=== PATIENT | female | born 1950 | race Caucasian/White ===

== ENCOUNTER 2023-04-06 12:47 | Outpatient (CLI) | payer MEDICARE, SELFPAY ==
--- NOTE | ~2023-04-06 | MR_ITS ---
EXAMINATION: MRA AIF DATE: 04/06/2023 14:06 INDICATION: Right leg paresthesias TECHNIQUE: Magnetic resonance angiography (MRA) of the abdomen, pelvis, and bilateral lower extremiti es was performed with 14 mL Multihance intravenous contrast. Sequences included coronal 3D CEMRA in t hree stations before and after contrast in a time course. Rotating maximum intensity projections were obtained. COMPARISON: None. FINDINGS: ABDOMINAL AORTA AND ITS BRANCHES: The celiac axis and superior mesenteric artery are normal at their origins. The inferior mesenteric a rtery origin is not well demonstrated. There are single renal arteries. 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 PELVIC VASCULATURE: The common iliac arteries, external iliac arteries, and proximal bilateral internal iliac arteries ar e unremarkable. RIGHT LOWER EXTREMITY VASCULATURE: The common femoral artery, superficial femoral artery, and profunda femoral artery appear normal. The popliteal artery is unremarkable. There is decreased opacification of the posterior tibial artery in its distal aspect. The peroneal and anterior tibial arteries are patent at the ankle. LEFT LOWER EXTREMITY VASCULATURE: The common femoral artery, superficial femoral artery, and profunda femoral artery appears normal. Th e popliteal artery is unremarkable. There is decreased opacification of the posterior tibial artery i n its distal aspect. The peroneal and anterior tibial arteries are patent at the ankle. OTHER FINDINGS: There are cysts of the kidneys. No definite additional findings are identified. IMPRESSION: 1. 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 2. Decreased opacification of the bilateral posterior tibial arteries. Reviewed, dictated and finalized at location F.
== END 2023-04-06 12:48 | disposition home or self-care (01) ==
LOC: ANHIMG 12:55
PROVIDERS: PCP Family Medicine; Visit Provider Family Medicine
DX: I71.40 Abdominal aortic aneurysm, without rupture, unspecified (principal); R20.2 Paresthesia of skin; I73.9 Peripheral vascular disease, unspecified; Z95.5 Presence of coronary angioplasty implant and graft; Z91.041 Radiographic dye allergy status
CPT/HCPCS: 73725; 74185; A9577; C8902; C8914

== ENCOUNTER 2025-05-23 11:54 | Emergency (ER) | payer MEDICARE, SELFPAY ==
[2025-05-23] VITALS (37 sets, daily range): BP systolic 102–139; BP diastolic 42–80; PULSE 54–84; RESP 14–29; TEMP 36.3; O2SAT 92–100
--- NOTE | ~2025-05-23 | XR_ITS ---
EXAM/PROCEDURE: XR chest 1V portable HISTORY: Dyspnea COMPARISON: None available. TECHNIQUE: AP view(s) of the chest. FINDINGS: LUNGS: Diffuse interstitial prominence, likely chronic. No consolidative process. PLEURAL SPACES: Clear. No evidence of fluid or pneumothorax. HEART/ MEDIASTINUM: Normal in appearance. SOFT TISSUES: No significant findings. BONES: No acute osseous abnormality. IMPRESSION: Probably chronic interstitial prominence. No airspace disease. Reviewed, dictated and finalized at location A. NT RELATION SPECIALIST
--- NOTE | 2025-05-23 12:00 | PC.NURSE ---
MD Dar made aware of pt's BP. No new orders at this time.
--- NOTE | 2025-05-23 12:03 | ED.GENADULT ---
HPI - General Adult General Chief complaint: Shortness of Breath/Dyspnea Stated complaint: shortness of breath History of Present Illness HPI narrative: Vianca is a 74F with a PMH of smoking, emphysema, and cardiac issues (she is unaware of her specific diagnosis, but did have a stent in 2011) that presented to the ED with lightheadedness, dyspnea and fatigue. She has been having it on an off for months but it has been severe for the last 2 hours[address] herself to the hospital but nearly passed out while walking in. She was a difficult historian and did not know much about her PMH. She denied fevers, chills, and falls. Related Data Home Medications ?Medication ?Instructions ?Recorded ?Confirmed ?Last Taken ?Type alendronate 70 mg tablet 70 mg PO WEEKLY 05/23/25 Unknown History clopidogrel 75 mg tablet 75 mg PO DAILY 05/23/25 Unknown History dorzolamide 2 % eye drops 1 drp EACH EYE TID 05/23/25 Unknown History esomeprazole magnesium 20 mg 20 mg PO Q24H 05/23/25 Unknown History capsule,delayed release fluorouracil 5 % topical cream 1 applic topical BID 05/23/25 Unknown History fluticasone fur. 100 mcg-umeclid 1 inh inhalation Q24H 05/23/25 Unknown History 62.5 mcg-vilant 25 mcg inhalat.powder (Trelegy Ellipta) fluticasone fur. 200 mcg-umeclid inhalation 05/23/25 Unknown History 62.5 mcg-vilant 25 mcg inhalat.powder (Trelegy Ellipta) glucosamine-chondroitin 250 mg-200 2 tablet PO ONCE 05/23/25 Unknown History mg tablet hydrochlorothiazide 12.5 mg capsule 12.5 mg PO Q12H 05/23/25 Unknown History hydrocodone 10 mg-acetaminophen 1 tablet PO Q8H 05/23/25 Unknown History 325 mg tablet ketorolac 0.4 % eye drops 1 drp EACH EYE Q6H 05/23/25 Unknown History metoprolol tartrate 50 mg tablet 50 mg PO Q12H 05/23/25 Unknown History oxybutynin chloride 10 mg 10 mg PO DAILY 05/23/25 Unknown History tablet,extended release 24 hr potassium chloride 10 mEq 10 meq PO DAILY 05/23/25 Unknown History tablet,extended release simvastatin 40 mg tablet 40 mg PO QPM 05/23/25 Unknown History Allergies Allergy/AdvReac Type Severity Reaction Status Date / Time aspirin Allergy Unknown Unknown Verified 05/23/25 12:03 Iodinated Contrast Media Allergy Unknown Unknown Verified 05/23/25 12:03 Penicillins Allergy Unknown Unknown Verified 05/23/25 12:03 Review of Systems Review of Systems: All systems reviewed & are unremarkable except as noted in HPI and below Exam Const: General: cooperative, well developed, alert, awake and Physically active Orientation/consciousness: oriented to person, oriented to place and oriented to time Other: pale appearing HENMT: Head: normal to inspection, normocephalic and atraumatic Ears: hearing grossly normal bilaterally and external ears normal Face/Nose/Sinus: Normal external nose present Eyes: General: appearance normal, both eyes and all related structures Periorbital: periorbital findings normal Sclera: sclerae normal Pupils: Equal, round and reactive pupils present Neck: Neck: normal visual inspection Chest: Chest palpation & inspection: normal inspection of the chest Resp: Effort & Inspection: normal respiratory effort, able to speak in complete sentences and no respiratory distress Other: tachypnea with increased work of breathing, LLL crackles Cardio: Jugular venous distension: no JVD Rate: bradycardic Rhythm: regular rhythm GI: Inspection: normal to inspection GI Palp: Yes Soft to palpation Auscultation: normal bowel sounds Skin: General skin exam: normal color and no rashes or lesions noted Neuro: General: oriented to person, oriented to place and oriented to time Cranial nerves: Yes Equal, round and reactive pupils present Extrem: General: normal to inspection Course Course Emergency Course: Ordered labs, CXR, EKG EKG showed sinus bradycardia with a rate of 56 with PVC but no ST elevation or depression EXAM/PROCEDURE: XR chest 1V portable HISTORY: Dyspnea COMPARISON: None available. TECHNIQUE: AP view(s) of the chest. FINDINGS: LUNGS: Diffuse interstitial prominence, likely chronic. No consolidative process. PLEURAL SPACES: Clear. No evidence of fluid or pneumothorax. HEART/ MEDIASTINUM: Normal in appearance. SOFT TISSUES: No significant findings. BONES: No acute osseous abnormality. IMPRESSION: Probably chronic interstitial prominence. No airspace disease. Labs show mild leukocytosis at 13.6, significant anemia at 7.3, mild hypokalemia, and elevated BNP at 433. Tachypnea is concerning for a PE but she is allergic to CT contrast. She gets a rash and itching but no anaphylaxis type reaction. I spoke with Amanda Begum at 1320 that recommended trying [facility] where she gets her primary care Next I spoke with Dr. Alarcon at [facility] that accepted provided the patient had a negative FOBT FOBT was negative. UA c/w UTI so ceftriaxone was given She was transferred to [facility] for imaging and a higher level of care Vital Signs Vital signs: Vital Signs Temperature 97.4 F L 05/23/25 11:54 Pulse Rate 54 L 05/23/25 11:54 Respiratory Rate 24 H 05/23/25 11:54 Blood Pressure 102/50 L 05/23/25 11:54 Pulse Oximetry 98 05/23/25 11:54 Oxygen Delivery Room Air 05/23/25 11:54 Temperature 97.4 F L 05/23/25 11:54 Pulse Rate 75 05/23/25 16:01 Respiratory Rate 27 H 05/23/25 16:01 Blood Pressure 139/70 05/23/25 16:01 Pulse Oximetry 97 05/23/25 16:01 Oxygen Delivery Room Air 05/23/25 12:00 Medical Decision Making Vital Signs Vital Signs: Vital Signs Temperature 97.4 F L 05/23/25 11:54 Pulse Rate 54 L 05/23/25 11:54 Respiratory Rate 24 H 05/23/25 11:54 Blood Pressure 102/50 L 05/23/25 11:54 Pulse Oximetry 98 05/23/25 11:54 Oxygen Delivery Room Air 05/23/25 11:54 Temperature 97.4 F L 05/23/25 11:54 Pulse Rate 75 05/23/25 16:01 Respiratory Rate 27 H 05/23/25 16:01 Blood Pressure 139/70 05/23/25 16:01 Pulse Oximetry 97 05/23/25 16:01 Oxygen Delivery Room Air 05/23/25 12:00 Lab Data 05/23/25 12:05 05/23/25 12:05 Labs: Lab Results 05/23/25 05/23/25 05/23/25 Range/Units 12:03 12:05 14:10 WBC 13.6 H (4.8-10.8) K/mm3 RBC 4.20 (4.20-5.40) M/mm3 Hgb 7.3 L (11.7-13.8) g/dL Hct 28.2 L (35.0-42.0) % MCV 67.1 L (78.0-102.0) fL MCH 17.4 L (27.0-31.0) pg MCHC 25.9 L (32-36) g/dL RDW 21.1 H (11.6-14.4) % Plt Count 558 H (150-420) K/mm3 MPV 9.2 (9.2-11.8) fl Immature Gran % (Auto) 0.7 H (0.0-0.0) % Neut % (Auto) 65.4 (50.0-70.0) % Lymph % (Auto) 23.3 (18.0-42.0) % [place] % (Auto) 8.2 (2.0-11.0) % Eos % (Auto) 1.5 (1.0-6.0) % Baso % (Auto) 0.9 (0.0-1.0) % Lymph # (Auto) 3.18 (1.10-4.50) K/mm3 [place] # (Auto) 1.12 H (0.10-0.90) K/mm3 Eos # (Auto) 0.20 (0.02-0.50) K/mm3 Baso # (Auto) 0.12 H (0.00-0.10) K/mm3 Abs Immat Gran (auto) 0.10 H (0.00-0.00) K/mm3 Absolute Neuts (auto) 8.92 H (1.70-7.20) K/mm3 Absolute Nucleated RBC 0.03 H (0.00-0.00) K/mm3 Nucleated RBC % 0.2 H (0-0.0) % % Immature Plt Fraction 1.6 (1.0-7.0) % D-Dimer 1.04 H (0.19-0.50) mg/L Sodium 143 (137-145) mmol/L Potassium 3.3 L (3.4-5.0) mmol/L Chloride 109 H (98-107) mmol/L Carbon Dioxide 19 L (22-30) mmol/L Anion Gap 15 H (4-12) mmol/L BUN 20 H (7-17) mg/dL Creatinine 0.92 (0.7-1.0) mg/dL Estim Creat Clear Calc 35 ml/min Estimated GFR 59 (59 - ) Glucose 134 H (65-110) mg/dL Calculated Osmolality 300 H (285-295) mOsm/kg Calcium 9.7 (8.4-10.2) mg/dL Magnesium 1.9 (1.6-2.3) mg/dL Total Bilirubin 1.0 (0.2-1.3) mg/dL AST 38 H (14-36) U/L ALT 20 (6-35) U/L Alkaline Phosphatase 63 (38-126) U/L Troponin I 0.013 (0.000-0.034) ng/mL NT-Pro-B Natriuret Pep 433 H (19.9-100) pg/mL Total Protein 8.3 H (6.3-8.2) g/dL Albumin 4.8 (3.5-5.1) g/dL Urine Color (Yellow) Urine Appearance (Clear) Urine pH (5.0-8.0) Ur Specific [place] (1.010-1.020) Urine Protein (Negative) Urine Glucose (UA) (Negative) Urine Ketones (Negative) Ur Blood (Man) (Negative) Urine Nitrate (Negative) Urine Bilirubin (Negative) Urine Urobilinogen (0.2-1.0) mg/dL Leukocyte Esterase Rfl (Negative) MORALES/UL Urine RBC (0-2) /hpf Urine WBC (0-3) /hpf Ur Squamous Epith Cells (Few) /hpf Ur Renal Epithelial Cell (None) /hpf Urine Bacteria (None) /hpf Stool Occult Blood Negative (Negative) Urine Opiates Screen (Negative) Urine Methadone Screen (Negative) Ur Barbiturates Screen (Negative) Ur Phencyclidine Scrn (Negative) Ur Amphetamine Screen (Negative) U Benzodiazepines Scrn (Negative) Urine Cocaine Screen (Negative) U Cannabinoids Screen (Negative) Ethyl Alcohol < 10 (<10) mg/dL Influenza A (RT-PCR) Negative (Negative) Influenza B (RT-PCR) Negative (Negative) RSV (RT-PCR) Negative (Negative) SARS-CoV-2 RNA (RT-PCR) Negative (Negative) 05/23/25 Range/Units 15:04 WBC (4.8-10.8) K/mm3 RBC (4.20-5.40) M/mm3 Hgb (11.7-13.8) g/dL Hct (35.0-42.0) % MCV (78.0-102.0) fL MCH (27.0-31.0) pg MCHC (32-36) g/dL RDW (11.6-14.4) % Plt Count (150-420) K/mm3 MPV (9.2-11.8) fl Immature Gran % (Auto) (0.0-0.0) % Neut % (Auto) (50.0-70.0) % Lymph % (Auto) (18.0-42.0) % [place] % (Auto) (2.0-11.0) % Eos % (Auto) (1.0-6.0) % Baso % (Auto) (0.0-1.0) % Lymph # (Auto) (1.10-4.50) K/mm3 [place] # (Auto) (0.10-0.90) K/mm3 Eos # (Auto) (0.02-0.50) K/mm3 Baso # (Auto) (0.00-0.10) K/mm3 Abs Immat Gran (auto) (0.00-0.00) K/mm3 Absolute Neuts (auto) (1.70-7.20) K/mm3 Absolute Nucleated RBC (0.00-0.00) K/mm3 Nucleated RBC % (0-0.0) % % Immature Plt Fraction (1.0-7.0) % D-Dimer (0.19-0.50) mg/L Sodium (137-145) mmol/L Potassium (3.4-5.0) mmol/L Chloride (98-107) mmol/L Carbon Dioxide (22-30) mmol/L Anion Gap (4-12) mmol/L BUN (7-17) mg/dL Creatinine (0.7-1.0) mg/dL Estim Creat Clear Calc ml/min Estimated GFR (59 - ) Glucose (65-110) mg/dL Calculated Osmolality (285-295) mOsm/kg Calcium (8.4-10.2) mg/dL Magnesium (1.6-2.3) mg/dL Total Bilirubin (0.2-1.3) mg/dL AST (14-36) U/L ALT (6-35) U/L Alkaline Phosphatase (38-126) U/L Troponin I (0.000-0.034) ng/mL NT-Pro-B Natriuret Pep (19.9-100) pg/mL Total Protein (6.3-8.2) g/dL Albumin (3.5-5.1) g/dL Urine Color Light yellow (Yellow) Urine Appearance Clear (Clear) Urine pH 5.0 (5.0-8.0) Ur Specific [place] 1.020 (1.010-1.020) Urine Protein Negative (Negative) Urine Glucose (UA) Negative (Negative) Urine Ketones Negative (Negative) Ur Blood (Man) Negative (Negative) Urine Nitrate Positive H (Negative) Urine Bilirubin Negative (Negative) Urine Urobilinogen 0.2 (0.2-1.0) mg/dL Leukocyte Esterase Rfl 1+ H (Negative) MORALES/UL Urine RBC None seen (0-2) /hpf Urine WBC 4-6 H (0-3) /hpf Ur Squamous Epith Cells Few (Few) /hpf Ur Renal Epithelial Cell Few H (None) /hpf Urine Bacteria 3+ H (None) /hpf Stool Occult Blood (Negative) Urine Opiates Screen Negative (Negative) Urine Methadone Screen Negative (Negative) Ur Barbiturates Screen Negative (Negative) Ur Phencyclidine Scrn Negative (Negative) Ur Amphetamine Screen Negative (Negative) U Benzodiazepines Scrn Negative (Negative) Urine Cocaine Screen Negative (Negative) U Cannabinoids Screen Negative (Negative) Ethyl Alcohol (<10) mg/dL Influenza A (RT-PCR) (Negative) Influenza B (RT-PCR) (Negative) RSV (RT-PCR) (Negative) SARS-CoV-2 RNA (RT-PCR) (Negative) Discharge Plan Discharge Clinical Impression: Anemia, Acute dyspnea, Allergic to IV contrast, Acute UTI Patient Disposition: Home Condition: Stable Instructions: Antibiotic Form Patient Language: Hungarian Prescriptions: No Action oxybutynin chloride 10 mg tablet extended release 24hr 10 mg PO DAILY alendronate 70 mg tablet 70 mg PO WEEKLY potassium chloride 10 mEq tablet extended release 10 meq PO DAILY clopidogrel 75 mg tablet 75 mg PO DAILY hydrocodone-acetaminophen 10-325 mg tablet 1 tablet PO Q8H simvastatin 40 mg tablet 40 mg PO QPM metoprolol tartrate 50 mg tablet 50 mg PO Q12H hydrochlorothiazide 12.5 mg capsule 12.5 mg PO Q12H esomeprazole magnesium 20 mg capsule,delayed release(DR/EC) 20 mg PO Q24H ketorolac 0.4 % drops 1 drp EACH EYE Q6H Trelegy Ellipta 100-62.5-25 mcg blister with device 1 inh INHALATION Q24H Trelegy Ellipta 200-62.5-25 mcg blister with device INHALATION dorzolamide 2 % drops 1 drp EACH EYE TID fluorouracil 5 % cream 1 applic topical BID glucosamine-chondroitin 250-200 mg tablet 2 tablet PO ONCE Rx Instructions: give after food/meal Follow-up/Referrals: UNKNOWN,DOCTOR [Non-Staff]
[2025-05-23 12:11] LABS: Hematocrit 28.2 % (35.0-42.0); Hemoglobin 7.3 g/dL (11.7-13.8); Immature Granulocyte Percent A 0.7 % (0.0-0.0); Immature Platelet Fraction Pct 1.6 % (1.0-7.0); Lymphocytes Absolute Auto 3.18 K/mm3 (1.10-4.50); Mean Corpuscular HGB Conc 25.9 g/dL (32-36); Mean Corpuscular Hemoglobin 17.4 pg (27.0-31.0); Mean Corpuscular Volume 67.1 fL (78.0-102.0); Nucleated Red Blood Cells Absolute Auto 0.03 K/mm3 (0.00-0.00); Nucleated Red Blood Cells Perc 0.2 % (0-0.0); Platelet Count Result 558 K/mm3 (150-420); Red Blood Count 4.20 M/mm3 (4.20-5.40); White Blood Count 13.6 K/mm3 (4.8-10.8)
--- NOTE | 2025-05-23 12:12 | ECG_ITS ---
Test Date: 2025-05-23 11:57:31 Measurements Intervals [place] Rate: 56 P: 23 [place]: 139 QRS: 56 QRSD: 89 T: 0 QT: 453 QTc: 439 Interpretive Statements SINUS BRADYCARDIA WITH OCCASIONAL VENTRICULAR PREMATURE COMPLEXES NONSPECIFIC ST & T-WAVE ABNORMALITY ABNORMAL ECG No previous ECG available for comparison Electronically Signed On 05-23-2025 12:30:42 LABORATORY COORDINATOR by Manpreet Dangelo M.D.
[2025-05-23 12:21] LABS: Alanine Aminotransferase 20 U/L (6-35); Albumin Level 4.8 g/dL (3.5-5.1); Alkaline Phosphatase 63 U/L (38-126); Anion Gap 15 mmol/L (4-12); Aspartate Amino Transferase 38 U/L (14-36); Bilirubin,Total 1.0 mg/dL (0.2-1.3); Blood Urea Nitrogen 20 mg/dL (7-17); Calcium 9.7 mg/dL (8.4-10.2); Carbon Dioxide 19 mmol/L (22-30); Chloride 109 mmol/L (98-107); Estimated CRCL calculation 35 ml/min; Estimated Glomerular Filt Rate 59; Glucose 134 mg/dL (65-110); Magnesium 1.9 mg/dL (1.6-2.3); Osmolality Calculated 300 mOsm/kg (285-295); Potassium 3.3 mmol/L (3.4-5.0); Sodium 143 mmol/L (137-145); Total Protein 8.3 g/dL (6.3-8.2)
[2025-05-23 12:30] LABS: NT Pro B Type Natriuretic Pept 433 pg/mL (19.9-100)
[2025-05-23 12:32] LABS: Troponin I 0.013 ng/mL (0.000-0.034)
--- OUTSIDE RECORDS SUMMARY | 2025-05-23 12:35 | XMS_ITS | Clinical Summary ---
Author Organization [facility] Address [address] [address] Phone Care Team Providers Care Chair Pad Maker Name Role Phone Case Combs MD Primary Care Provider [phone] Matt Maradiaga MD Unavailable Gen Figueroa MD Unavailable Allergies Active Allergy Reactions Criticality Noted Date Comments Aspirin Hives High Iodinated Contrast Media Swelling Medium Penicillins Hives,Swelling High Medications Blood Pressure Monitoring (BLOOD PRESSURE CUFF) MiscIndications: Essential hypertension Dispense arm cuff, battery operated. Check blood pressure & pulse twice a day at random times. 1 Each 03/28/20 18 Active Sidney-3 Fatty Acids (FISH OIL PO) Take by mouth. Activ e VITAMIN D PO Take by mouth. Ac tive Boswellia-Glucos amine-Vit D (OSTEO BI-FLEX ONE PER DAY PO) Take by mouth 2 times daily as needed. Active triamcinolone (KENALOG) 0.1 % Cream Application Site: apply to affected areas twice a day for 10 days. (Description and Location) 15 g 1 02/10/20 21 Active Additional Information Patient not taking.Reported on 02/05/2025 albuterol 108 (90 Base) MCG/ACT Aerosol Solution INHALE 1 PUFF BY MOUTH EVERY 6 HOURS NEEDED FOR WHEEZING 8.5 g 06/23/20 22 Active Additional Information Patient not taking.Reported on 02/05/2025 Banophen 50 MG Capsule 04/22/20 22 Active Fluticasone-Umec lidin-Vilant (Trelegy Ellipta) 100-62.5-25 MCG/ACT AEROSOL POWDER, BREATH ACTIVATED take 1 Puff by inhalation daily. 2 Each 11/16/19 23 Active Additional Information Patient not taking.Reported on 02/05/2025 ketorolac, ophth, (ACULAR) 0.5 % Solution INSTILL 1 DROP IN BOTH EYES THREE TIMES DAILY 10/04/19 24 Active dorzolamide (TRUSOPT) 2 % Solution INSTILL 1 DROP IN BOTH EYES THREE TIMES DAILY 10/04/19 24 Active betamethasone dipropionate 0.05 % Cream APPLY TWICE DAILY TO SCALING INFLAMED RED SKIN ON LEFT ELBOW 10/26/19 24 Active mupirocin (BACTROBAN) 2 % Ointment APPLY TOPICALLY TO LEFT ELBOW THREE TIMES DAILY FOR 10 DAYS 09/22/19 24 Active prednisoLONE acetate (PRED FORTE) 1 % Suspension SHAKE LIQUID AND INSTILL 1 DROP IN LEFT EYE THREE TIMES DAILY 04/24/20 24 Active metoprolol tartrate (LOPRESSOR) 50 MG TabletIndication s:Primary hypertension Take 1 Tablet by mouth 2 times daily. 180 Tablet 3 05/29/20 24 Active alendronate (FOSAMAX) 70 MG TabletIndication s:Osteopenia, unspecified location TAKE 1 TABLET BY MOUTH EVERY 7 DAYS 12 Tablet 1 07/29/19 25 Active hydroCHLOROthiaz erika (MICROZIDE) 12.5 MG Capsule TAKE 1 CAPSULE BY MOUTH DAILY 90 Capsule 2 09/10/19 25 Active simvastatin (ZOCOR) 40 MG Tablet Take 1 Tablet by mouth every evening. 90 Tablet 2 10/30/19 25 Active oxybutynin (DITROPAN-XL) 10 MG TABLET SR 24 HR TAKE 1 TABLET BY MOUTH DAILY 90 Tablet 2 11/25/19 25 Active Fluticasone-Umec lidin-Vilant (Trelegy Ellipta) 100-62.5-25 MCG/ACT AEROSOL POWDER, BREATH ACTIVATEDIndicat ions:Panlobular emphysema take 1 Puff by inhalation daily. 60 Each 12/25/19 Active clopidogrel (PLAVIX) 75 MG Tablet TAKE 1 TABLET BY MOUTH DAILY 90 Tablet 2 01/01/20 Active Fluticasone-Umec lidin-Vilant (Trelegy Ellipta) 200-62.5-25 MCG/ACT AEROSOL POWDER, BREATH ACTIVATEDIndicat ions:Panlobular emphysema take 1 Puff by inhalation daily. 1 Each 1 01/10/20 Active Additional Information Patient not taking.Reported on 02/05/2025 potassium chloride CR (KLORCON) 10 MEQ Tablet Controlled ReleaseIndicatio ns:Hypokalemia Take 1 Tablet by mouth daily. 90 Tablet 1 01/17/20 Active esomeprazole (NexIUM) 20 MG CAPSULE DELAYED RELEASE TAKE 1 CAPSULE BY MOUTH DAILY 90 Capsule 1 04/22/20 Active HYDROcodone-acet aminophen (NORCO) 10-325 MG TabletIndication s:Chronic pain syndrome Take 1 Tablet by mouth every 8 hours as needed for Moderate or more severe pain. DX G89.4 90 Tablet 05/23/20 25 Active HYDROcodone-acet aminophen (NORCO) 10-325 MG TabletIndication s:Chronic pain syndrome Take 1 Tablet by mouth every 8 hours as needed for Moderate or more severe pain. DX G89.4 90 Tablet 04/22/20 25 025 Discontin ued(Reord er) Active Problems Problem Noted Date Diagnosed Date Paresthesias 02/05/2025 Therapeutic drug monitoring 10/04/2024 Skin lesion of left arm 02/21/2024 Skin lesions 11/01/2023 Urinary incontinence 11/01/2023 Leukocytosis 09/18/2023 Acute pain of right knee 07/26/2023 Right hip pain 07/26/2023 Fall 07/26/2023 Abdominal aortic aneurysm (AAA) without rupture 04/21/2023 Chest pain 02/10/2023 Gastroesophageal reflux disease 02/10/2023 Elbow swelling, left 01/13/2023 Left elbow pain 01/13/2023 PVD (peripheral vascular disease) 12/12/2022 Osteopenia 10/05/2022 Chronic pain of right ankle 10/05/2022 Postmenopausal 07/02/2022 Ruptured Bakers cyst 05/16/2022 Hypokalemia 05/09/2022 Elevated serum creatinine 04/01/2022 Right leg paresthesias 04/01/2022 Left leg paresthesias 04/01/2022 Leg swelling 04/01/2022 Prediabetes 01/04/2022 Lung nodule 12/29/2021 Noncompliance 12/29/2021 Hyperglycemia 10/02/2021 History of heart attack 06/28/2018 Skin lesion 06/28/2018 Elevated vitamin B12 level 12/28/2017 Chronic narcotic use 12/26/2017 Chronic pain syndrome 10/17/[address] 09/11/2017 Vitamin D deficiency 09/10/2017 B12 deficiency 09/10/2017 Dermatophytosis of nail 08/11/2017 High blood pressure 07/26/2017 Tobacco use disorder 07/26/2017 Overweight (BMI 25.0-29.9) 07/26/2017 H/O heart artery stent 07/26/2017 Toenail deformity 07/26/2017 Panlobular emphysema 03/15/2017 Screening for malignant neoplasm of colon 2016 Dermatitis 11/24/2016 Depression Irritable bladder Hyperlipidemia Anxiety Hot flashes Coronary artery disease with angina pectoris Resolved Problems Problem Noted Date Diagnosed Date Resolved Date Tobacco abuse 05/29/2024 03/04/2025 Wheezing 07/26/2017 09/01/2023 Encounter for immunization 03/15/2017 0 07/26/2017 Encounters Date Type Department Care Team Description 05/21/2025 [facility] [place] [phone] Case Combs MD Medication Renewal Reviewed 04/23/2025 MyChart RX Renewal [facility] [address] [place] [phone] Case Combs MD Medication Renewal Declined 04/22/2025 [facility] [place] [address] Case Combs MD Medication Refill 04/21/2025 MyChart RX Renewal [facility] [address] [place] [address] Case Combs MD Medication Renewal Reviewed 04/21/2025 Refill [facility] [address] [place] [address] Case Combs MD Medication Refill 03/21/2025 MyChart RX Renewal [facility] [address] [place] [address] Case Combs MD Medication Renewal Reviewed 03/19/2025 Results Follow-Up [facility] [address] [place] [address] Margy Shepherd, RN 6 Min Walk 03/11/2025 2:57 PM CDT - 03/11/2025 11:59 PM CDT Hospital Encounter [facility] Res[facility] Therapy [address] [place] [phone] Gen Figueroa MD Discharge Disposition: Discharged to home or Selfcare 03/11/2025 Travel 03/04/2025 1:45 PM CDT Office Visit [facility] [address] [place] [address] Gen Figueroa MD Panlobular emphysema (HCC) (Primary Dx); Lung nodule; Primary hypertension; Tobacco use disorder Discharge Disposition: Discharged to home or Selfcare 03/04/2025 Travel from Last 3 Months Immunizations Immunization Administration Dates Next Due Covid-19, Mrna, Lnp-s, PF, 1 00 mcg/0.5 mL Dose (Moderna) 09/18/2020,08/21/2020 Influenza Vaccine greater than 3 yrs 03/27/2014 Influenza Vaccine, Quadrivalent, PF 04/06/2019,1 ,03/04/2017 Influenza, High-dose, Quadrivalent 03/31/2021 Influenza, Quadrivalent, Adjuvanted 03/11/2020 Influenza, Seasonal, Injecta ble, Undefined 03/27/2014 Influenza, Trivalent, Adjuvanted, PF 03/11/2020 Influenza, high-dose, trivalent, PF 03/29,04/14/2016,04/25/2015,2014 PNEUMONIA ADULT IM [id number] 05/26/2016 Pneumococcal Vaccine - 13 Valent 04/25/2015,03/29 Pneumococcal Vaccine Adult - 23 Valent 05/26/2016,06/27/2001 Tetanus Toxoid, Unspecified Formulation 09/26/2007 Family History Medical History Relation Name Comments Cancer Brother 1 Jose M Lung Cancer Brother 1 Jose M Cancer Brother 2 Jose M Romero Hypertension Father Celio Romero No Known Problems Maternal Grandfather Cancer Maternal Grandmother Emelyn Erlin Alzheimer's Disease Mother Mechelle Romero Heart Attack Mother Mechelle Romero No Known Problems Paternal Grandfather No Known Problems Paternal Grandmother Heart Attack Son Relation Name Status Comments Brother 1 Jose M Brother 2 Jose M Romero Father Celio Romero Maternal Grandfather Maternal Grandmother Emelyn Erlin Mother Mechelle Romero Paternal Grandfather Paternal Grandmother Son Alive Social History Tobacco Use Types Packs/Day Years Used Date Smoking Tobacco: Every Day Cigarettes 0.5 53.4 Started: [birth year]/20/1971 Smokeless Tobacco: Never Tobacco Cessation:Ready to Q uit: No; Counseling Given: Yes Comments:Less than half a pack Alcohol Use Standard Drinks/Week Comments No 0 (1 standard drink = 0.6 oz pur e alcohol) [facility] Utilities Answer Date Recorded In the past 12 months has [employer], gas, oil, or water [employer] threatened to shut off services in your home? No 10/01/2024 Social Connection and Isolation Panel Answer Date Recorded In a typical week, how many times do you talk on the phone with family, friends, or neighbors? More than three times a week 10/01/2024 How often do you get togethe r with friends or relatives? Once a week 10/01/2024 How often do you attend [facility] or religion services? Never 10/01/2024 Do you belong to any clubs o r organizations such as christian groups, unions, fraternal or athletic groups, or school groups? No 10/01/2024 How often do you attend meet ings of the clubs or organizations you belong to? Never 10/01/2024 Are you , , di vorced, , never , or living with a partner? 10/01/2024 AUDIT-C Answer Date Recorded Q1: How often do you have a drink containing alcohol? Never 10/01/2024 Q2: How many drinks containi ng alcohol do you have on a typical day when you are drinking? Patient does not drink Q3: How often do you have si x or more drinks on one occasion? Never 10/01/2024 Overall Financial Resource Strain (CARDIA) Answe r Date Recorded How hard is it for you to pa y for the very basics like food, housing, medical care, and heating? Not very hard 10/01/2024 PHQ-2 Answer Date Recorded Total Score - Questions 1-9 0 01/25 [facility] - Occupational Stress Questionnaire Answer Date Recorded Do you feel stress - tense, restless, nervous, or anxious, or unable to sleep at night because your mind is troubled all the time - these days? Only a little 10/01/2024 Exercise Vital Sign Answer Date Recorde d On average, how many days pe r week do you engage in moderate to strenuous exercise (like a brisk walk)? 3 days 10/01/2024 On average, how many minutes do you engage in exercise at this level? 30 min 10/01/2024 Hunger Vital Sign Answer Date Recorded Within the past 12 months, y ou worried that your food would run out before you got the money to buy more. Never true 10/02/19 25 Within the past 12 months, t he food you bought just didn't last and you didn't have money to get more. Never true 10/01/2024 PRAPARE - Transportation Answer Date Re corded In the past 12 months, has l ack of transportation kept you from medical appointments or from getting medications? No 12/2024 In the past 12 months, has l ack of transportation kept you from meetings, work, or from getting things needed for daily living? No 10/01/2024 Housing Stability Vital Sign Answer Davis e Recorded In the last 12 months, was t here a time when you were not able to pay the mortgage or rent on time? No 10/31/2023 In the last 12 months, how many places have you lived? 1 10/31/2023 In the last 12 months, was t here a time when you did not have a steady place to sleep or slept in a long-term (including now)? No 10/31/2023 Housing Stability Vital Sign Answer Davis e Recorded In the last 12 months, was t here a time when you were not able to pay the mortgage or rent on time? No 10/01/2024 In the past 12 months, how m any times have you moved where you were living? 0 10/01/2024 At any time in the past 12 m [facility], were you homeless or living in a long-term (including now)? No 10/01/2024 Education Answer Date Recorded What is the highest level of school you have completed or the highest degree you have received? GED or equivalent 07/2022 Sexually Active Control Partners Comments Not Currently None Male Comments No Sex and Gender Information Value Date Recorded Sex Assigned at Not on file Legal Sex Female 8:55 PM CDT Gender Identity Not on file Sexual Orientation Not on file Last Filed Vital Signs Vital Sign Reading Time Taken Comments Blood Pressure 130/64 03/04/2025 1:41 PM CDT Pulse 51 03/04/2025 1:41 PM CDT Temperature 36.5 C (97.7 F) 03/04/2025 1:41 PM CDT Respiratory Rate 16 03/04/2025 1:41 PM CDT Oxygen Saturation 98% 03/04/2025 1:41 PM CDT Inhaled Oxygen Concentration - - Weight 64.1 kg (141 lb 4.8 oz) 03/04/2025 1:41 P M CDT Height 157.5 cm (5' 2) 03/04/2025 1:41 PM CDT Body Mass Index 25.84 03/04/2025 1:41 PM CDT Plan of Treatment Upcoming Encounters Date Type Department Care Team (Late st Contact Info) Description 05/24/2025 3:00 PM MEDICATION RECONCILIATION TECHNICIAN [facility]ointment [facility] [address] [place] [address] Gen Figueroa MD [address] [place] [address] Discharge Disposition: Discharged to home or Selfcare 05/29/2025 1:00 PM MEDICATION RECONCILIATION TECHNICIAN Office Visit [facility] [address] [place] [address] Case Combs MD [address] [address] 06/03/2025 10:15 AM MEDICATION RECONCILIATION TECHNICIAN Office Visit [facility] - Pulmonology & Sleep Medicine [facility] [address] [place] [address] Gen Figueroa MD [address] [place] [address] Health Maintenance Due Date Last Done Comments TdaP Immunization 1950 Zoster Immunization (1 of 2) 1998 Medicare Initial AWV G0438 09/25/2014 Respiratory Syncytial Virus (RSV) Immunization (Adult) (1 - 1-dose 75+ series) 10/01/2023 Influenza Immunization (#1) 2025 10/0 10/2020, 03/11/2020, 03/11/2020, Additional history exists SARS-COV-2 Immunization ( season) 2025 05/31/2021, 09/18/2020, 08/21/2020 Lung Cancer Screening 08/31/2025 08/31/2024 , 08/01/2023, 07/16/2022, Additional history exists DEXA Bone Density 10/08/2026 10/08/2024, 07/07/2022 Pneumococcal Immunization (50+ years) Completed 05/26/2016, 05/26/2016, 04/25/2015, Additional history exists Pneumococcal Immunization Combined Discontinued 05/26/2016, 05/26/2016, 04/25/2015, Additional history exists Immunochemical Fecal Occult Blood Discontinued 07/26/2017 Hepatitis C Virus (HCV) Screening Completed 08/04/2017 Cologuard Discontinued 02/03/2022, 01/15/2019 Colorectal Cancer Screening Discontinued Mammogram Discontinued 08/31/2024, 07/2022, 10/10/2021, Additional history exists Colonoscopy Discontinued Hepatitis B Immunization Aged Out No longer eligible based on patient's age to complete this topic Human Papillomavirus (HPV) Immunization Aged Out No longer eligible based on patient's age to complete this topic Meningococcal Immunization (ACWY) Aged Out No longer eligible based on patient's age to complete this topic Rotavirus Immunization Aged Out No lo nger eligible based on patient's age to complete this topic Medical Devices Implanted Type Area Lock Maintenance Supervisor Device Identifier Shelf Expiration Date Model / Serial / Lot Device Clsr 70cm 6fr Angio-Seal Vip .035in Vasc Collagen Valuelink Gw Insertion [facility] - [id number] Implanted:Qty: 1 on 03/14/2018 by Fabi Little MD at [facility] IMPLANT Right: Groin Playto 11/24/2018 [id number] / / [id number] Technis 1-Piece Iol With Simplicity Delivery System Implanted:Qty: 1 on 12/12/2023 by Natacha Horne MD PhD at [facility] Left: Eye 05/25/2025 [id number] / [id number] / [id number] Procedures Procedure Name Priority Date/Time Associated Diagnosis Comments 6 MIN WALK Routine 03/11/2025 Panlobular emphysema (HCC) [facility] BONE DENSITOMETRY AXIAL SKELETON Routine 10/08/2024 9:35 AM CDT Postmenopausal NURIA SCREENING BILATERAL DIGITAL W CAD W DEEJAY Routine 08/31/2024 11:12 AM MEDICATION RECONCILIATION TECHNICIAN Encounter for screening mammogram for breast cancer CT CHEST W/O CONTRAST Routine 08/31/2024 10:45 AM MEDICATION RECONCILIATION TECHNICIAN Lung nodule COLOGUARD Routine 02/03/2022 7:44 PM CDT Screening for malignant neoplasm of colon HEPATITIS C ANTIBODY Routine 08/04/2017 7:39 AM MEDICATION RECONCILIATION TECHNICIAN Encounter for hepatitis C screening test for low risk patient STOOL, OCCULT BLOOD IMMUNOASSAY (IFOB) Routine 07/26/2017 10:33 AM MEDICATION RECONCILIATION TECHNICIAN Screening for malignant neoplasm of colon from Last 3 Months or Most Recently Relevant to Health Maintenance Results * 6 Min Walk (03/11/2025) RESTING PULSE 80 RESTING SPO2 97 % Resting Dyspnea Scale 1 OXYGEN FLOW RATE AT REST 0.00 L/min SPO2 DURING AMBULATION WITH O2 na SPO2 DURING AMBULATION WITHOUT O2 90 OXYGEN FLOW RATE DURING ACTIVITY 0.00 L/min TOTAL DISTANCE (METERS) 182.00 m POST AMBULATION PULSE 86 POST AMBULATION BLOOD PRESSURE 125/58 POST-WALK DYSPNEA 3 NYHA Class Gen Figueroa MD PFT ORDERABLES Final Result * NURIA BONE DENSITOMETRY AXIAL SKELETON (10/08/2024 9:35 AM CDT) Anatomical Region Laterality Modality BODY N/A Computed Radiogr aphy 10/10/2024 5:42 AM CDT Impressions 10/10/2024 5:45 AM CDT IMPRESSION: Low bone mass REFERENCE: Bone mineral density: T-Score: Normal (T-score above or = -1.0) Low bone mass (T-score between -1.0 and -2.5) replaces the previously used term osteopenia Osteoporosis (T-score = or below -2.5) Z-Score: Within the expected range for age (Z-score above -2.0) Below the expected range for age (Z-score is -2.0 or below) Please see below follow up recommendations. Medical evaluation for secondary causes of low bone mineral density may be appropriate. FRAX is a World Health Organization validated fracture risk assessment tool that calculates a person's 10 year probability of a major osteoporosis related fracture and hip fracture. According to the National Osteoporosis Foundation guidelines, postmenopausal women and men age 50 or older with low bone mass and a 10 year probability of a major osteoporosis related fracture = or greater than 20% or a 10 year probability of a hip fracture = or greater than 3% should be considered for pharmacological treatment for the prevention of osteoporosis. For further information, including treatment recommendations, please refer to the 2019 ISCD Official Positions (http://www.iscd.org) and the NOF's Clinician's Guide to Prevention and Treatment of Osteoporosis (http://www.nof.org/professionals/clinical-guidelines) Narrative 10/10/2024 5:45 AM CDT EXAM DESCRIPTION: NURIA BONE DENSITOMETRY AXIAL SKELETON REASON FOR STUDY: 74 y/o year old F with given history of: Post menopausal status. History of smoking. Patient has taken/is taking Fosamax, and vitamin-D. 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 CLINICAL INFORMATION: Current height: 62 inches Maximum height: 62 inches Weight: 151 pounds Risk factors: Smoking COMPARISON: 07/07/2022 FINDINGS: AP LUMBAR SPINE L1-L4: Total BMD is 1.336 g/cm2 T-score is 1.1 This is a 4.8% increase in comparison to prior exam which is statistically significant. LEFT HIP: Total BMD is 0.906 g/cm2 T-score is -0.8 This is a 0.2% increase in comparison to prior exam which is not statistically significant. Femoral neck BMD is 0.831 g/cm2 T-score is -1.5 FRAX: 10 year risk for a major osteoporotic fracture is 12.2 %, 10 year risk for a hip fracture is 3.9 % Per National Osteoporosis Foundation guidelines, this patient does meet the criteria for pharmacological treatment of patients with FRAX 10 year major osteoporotic fracture risk scores of = or greater than 20% or a 10 year probability of a hip fracture = or greater than 3%, to reduce fracture risk. Additional factors such as frequent falls are not represented in FRAX and warrant individual clinical judgment. THIS IS AN ELECTRONICALLY VERIFIED FINAL REPORT 10/10/2024 5:42 AM - Electronically signed by Yeimi Ventura M.D. TW: DAMON Report ID: [id number] Reading Location: [place] [address] Procedure Note Yeimi Ventura MD - 10/10/2024 EXAM DESCRIPTION: NURIA BONE DENSITOMETRY AXIAL SKELETON REASON FOR STUDY: 74 y/o year old F with given history of: Post menopausal status. History of smoking. Patient has taken/is taking Fosamax, and vitamin-D. 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 CLINICAL INFORMATION: Current height: 62 inches Maximum height: 62 inches Weight: 151 pounds Risk factors: Smoking COMPARISON: 07/07/2022 FINDINGS: AP LUMBAR SPINE L1-L4: Total BMD is 1.336 g/cm2 T-score is 1.1 This is a 4.8% increase in comparison to prior exam which is statistically significant. LEFT HIP: Total BMD is 0.906 g/cm2 T-score is -0.8 This is a 0.2% increase in comparison to prior exam which is not statistically significant. Femoral neck BMD is 0.831 g/cm2 T-score is -1.5 FRAX: 10 year risk for a major osteoporotic fracture is 12.2 %, 10 year risk for a hip fracture is 3.9 % Per National Osteoporosis Foundation guidelines, this patient does meet the criteria for pharmacological treatment of patients with FRAX 10 year major osteoporotic fracture risk scores of = or greater than 20% or a 10 year probability of a hip fracture = or greater than 3%, to reduce fracture risk. Additional factors such as frequent falls are not represented in FRAX and warrant individual clinical judgment. THIS IS AN ELECTRONICALLY VERIFIED FINAL REPORT 10/10/2024 5:42 AM - Electronically signed by Yeimi Ventura M.D. TW: Report ID: [id number] Reading Location: [place] [address] IMPRESSION: Low bone mass REFERENCE: Bone mineral density: T-Score: Normal (T-score above or = -1.0) Low bone mass (T-score between -1.0 and -2.5) replaces the previously used term osteopenia Osteoporosis (T-score = or below -2.5) Z-Score: Within the expected range for age (Z-score above -2.0) Below the expected range for age (Z-score is -2.0 or below) Please see below follow up recommendations. Medical evaluation for secondary causes of low bone mineral density may be appropriate. FRAX is a World Health Organization validated fracture risk assessment tool that calculates a person's 10 year probability of a major osteoporosis related fracture and hip fracture. According to the National Osteoporosis Foundation guidelines, postmenopausal women and men age 50 or older with low bone mass and a 10 year probability of a major osteoporosis related fracture = or greater than 20% or a 10 year probability of a hip fracture = or greater than 3% should be considered for pharmacological treatment for the prevention of osteoporosis. For further information, including treatment recommendations, please refer to the 2019 ISCD Official Positions (http://www.iscd.org) and the NOF's Clinician's Guide to Prevention and Treatment of Osteoporosis (http://www.nof.org/professionals/clinical-guidelines) Case Combs MD IMG DEXA ORDERABLES Final Result * NURIA SCREENING BILATERAL DIGITAL W CAD W DEEJAY (08/31/2024 11:12 AM MEDICATION RECONCILIATION TECHNICIAN) Anatomical Region Laterality Modality breast Bilateral Mammography 08/31/2024 10:5 3 AM MEDICATION RECONCILIATION TECHNICIAN Narrative 09/03/2024 8:00 AM CDT - NURIA SCREENING BILATERAL DIGITAL W CAD W DEEJAY BILATERAL DIGITAL SCREENING MAMMOGRAM 3D/2D WITH CAD WITH MEDIOLATERAL OBLIQUE CRANIOCAUDAL: 08/31/2024 The study was acquired using digital technology and interpreted from soft copy. Current study was also evaluated with ICAD version 7.2. 2D digital mammographic views, as well as 3D digital tomosynthesis were performed in the CC and MLO projections. CLINICAL: Routine screening. Patient has no complaints. No personal history of cancer. No family history of breast cancer. COMPARISONS: Comparison is made to exams dated: 10/10/2021, 01/13/2019, and 11/26/2022 [facility]. BREAST TISSUE:There are scattered areas of fibroglandular density. FINDINGS: No significant masses, calcifications, or other findings are seen in either breast. There has been no significant interval change. IMPRESSION: NEGATIVE There is no mammographic evidence of malignancy. A 1 year screening mammogram is recommended. A letter will be sent to the patient with these results. The patient will be entered into a reminder system with a target due date of 1 year for her next screening exam. Electronically signed by: Nanci strange/penrad:08/31/2024 16:56:25 Paediatrician(s): NAHID MarieR)(M), [facility] letter sent: Normal Exam Reading location: [place] Mammogram BI-RADS: Category 1: Negative Procedure Note Nanci Mcnally MD - 09/03/2024 - NURIA SCREENING BILATERAL DIGITAL W CAD W DEEJAY BILATERAL DIGITAL SCREENING MAMMOGRAM 3D/2D WITH CAD WITH MEDIOLATERAL OBLIQUE CRANIOCAUDAL: 08/31/2024 The study was acquired using digital technology and interpreted from soft copy. Current study was also evaluated with ICAD version 7.2. 2D digital mammographic views, as well as 3D digital tomosynthesis were performed in the CC and MLO projections. CLINICAL: Routine screening. Patient has no complaints. No personal history of cancer. No family history of breast cancer. COMPARISONS: Comparison is made to exams dated: 10/10/2021, 01/13/2019, and 11/26/2022 [facility]. BREAST TISSUE:There are scattered areas of fibroglandular density. FINDINGS: No significant masses, calcifications, or other findings are seen in either breast. There has been no significant interval change. IMPRESSION: NEGATIVE There is no mammographic evidence of malignancy. A 1 year screening mammogram is recommended. A letter will be sent to the patient with these results. The patient will be entered into a reminder system with a target due date of 1 year for her next screening exam. Electronically signed by: Nanci strange/penrad:08/31/2024 16:56:25 Paediatrician(s): RT Cynthia(R)(M), [facility] letter sent: Normal Exam Reading location: [place] Mammogram BI-RADS: Category 1: Negative Case Rik Combs MD IMG MAMMO ORDERABLES Rufina l Result * CT CHEST W/O CONTRAST (08/31/2024 10:45 AM MEDICATION RECONCILIATION TECHNICIAN) Anatomical Region Laterality Modality Chest N/A Computed Tomogra phy 09/05/2024 11:3 4 AM CDT Impressions 09/05/2024 11:37 AM CDT IMPRESSION: 1. No acute cardiopulmonary abnormality. 2. Grossly stable pulmonary nodules compared to 08/01/2023. 3. Grossly stable indeterminate mediastinal and hilar lymphadenopathy. Recommend continued 6-12 month follow-up. Narrative 09/05/2024 11:37 AM CDT EXAM DESCRIPTION: CT CHEST W/O CONTRAST REASON FOR STUDY: F/u lung nodules since 2018. Hx of COPD, HTN and smoker TECHNIQUE: CT scan of the chest performed without intravenous contrast using helical scanning technique. Reconstructed coronal and sagittal MPR images reviewed. All images stored on PACS. Automated exposure control was used as a dose optimization technique for this examination. COMPARISON: 08/01/2023 FINDINGS: The sensitivity for detection of solid visceral lesions is diminished without the use of intravenous contrast. LUNGS: Moderate to severe emphysema is present. Mild bibasilar dependent ground-glass and reticulation likely represents mild fibrosis. No consolidation. No gross evidence of pulmonary edema. Mild biapical pleuroparenchymal scarring is redemonstrated. Subpleural nodularity within the posterior right upper lobe is stable and likely represents scarring as well (for reference 47). Stable 4 mm lateral right upper lobe nodule (99). Grossly stable linear scarring along the minor fissure. Stable 6 mm left upper lobe nodule (107). Stable 5 mm left upper lobe nodule (74). Stable 3 mm lateral left lower lobe nodule (111). Stable nodules along the left major fissure (71). There are other stable sub 6 mm pulmonary nodules. PLEURA: No effusion. No pneumothorax. MEDIASTINUM/FRANCISCO J: Grossly stable prominent mediastinal lymph nodes. For reference is a 13 x 9 mm right paratracheal lymph node (58). 13 mm right paratracheal lymph node in short axis, previously measuring 12 mm (76). Grossly stable 14 mm right hilar lymph node (99). Grossly stable 10 mm left perihilar lymph node as well in short axis (105). HEART: The heart is normal in size. Trace effusion CORONARY ARTERY CALCIFICATION: Significant coronary calcification VASCULATURE: Aorta is normal in caliber. AXILLA: No adenopathy. CHEST WALL: No masses. No subcutaneous air. HARDWARE/LINES/TUBES: None. UPPER ABDOMEN: Hypoattenuating lesion within segment 5 of the liver is stable and likely represents a cyst. MUSCULOSKELETAL: No significant abnormality. OTHER: No other significant abnormality. THIS IS AN ELECTRONICALLY VERIFIED FINAL REPORT 09/05/2024 11:34 AM - Electronically signed by Tyson Alvarado M.D. AG: URI Report ID: [id number] Reading Location: [id number] Procedure Note Tyson Alvarado MD - 09/05/2024 EXAM DESCRIPTION: CT CHEST W/O CONTRAST REASON FOR STUDY: F/u lung nodules since 2018. Hx of COPD, HTN and smoker TECHNIQUE: CT scan of the chest performed without intravenous contrast using helical scanning technique. Reconstructed coronal and sagittal MPR images reviewed. All images stored on PACS. Automated exposure control was used as a dose optimization technique for this examination. COMPARISON: 08/01/2023 FINDINGS: The sensitivity for detection of solid visceral lesions is diminished without the use of intravenous contrast. LUNGS: Moderate to severe emphysema is present. Mild bibasilar dependent ground-glass and reticulation likely represents mild fibrosis. No consolidation. No gross evidence of pulmonary edema. Mild biapical pleuroparenchymal scarring is redemonstrated. Subpleural nodularity within the posterior right upper lobe is stable and likely represents scarring as well (for reference 47). Stable 4 mm lateral right upper lobe nodule (99). Grossly stable linear scarring along the minor fissure. Stable 6 mm left upper lobe nodule (107). Stable 5 mm left upper lobe nodule (74). Stable 3 mm lateral left lower lobe nodule (111). Stable nodules along the left major fissure (71). There are other stable sub 6 mm pulmonary nodules. PLEURA: No effusion. No pneumothorax. MEDIASTINUM/FRANCISCO J: Grossly stable prominent mediastinal lymph nodes. For reference is a 13 x 9 mm right paratracheal lymph node (58). 13 mm right paratracheal lymph node in short axis, previously measuring 12 mm (76). Grossly stable 14 mm right hilar lymph node (99). Grossly stable 10 mm left perihilar lymph node as well in short axis (105). HEART: The heart is normal in size. Trace effusion CORONARY ARTERY CALCIFICATION: Significant coronary calcification VASCULATURE: Aorta is normal in caliber. AXILLA: No adenopathy. CHEST WALL: No masses. No subcutaneous air. HARDWARE/LINES/TUBES: None. UPPER ABDOMEN: Hypoattenuating lesion within segment 5 of the liver is stable and likely represents a cyst. MUSCULOSKELETAL: No significant abnormality. OTHER: No other significant abnormality. THIS IS AN ELECTRONICALLY VERIFIED FINAL REPORT 09/05/2024 11:34 AM - Electronically signed by Tyson Alvarado M.D. AG: AG Report ID: [id number] Reading Location: [place] [address] IMPRESSION: 1. No acute cardiopulmonary abnormality. 2. Grossly stable pulmonary nodules compared to 08/01/2023. 3. Grossly stable indeterminate mediastinal and hilar lymphadenopathy. Recommend continued 6-12 month follow-up. Gen Figueroa MD [facility] CT ORDERABLES Final Result * (ABNORMAL) COLOGUARD (02/03/2022 7:44 PM CDT) Cologuard Positive( A) Negative PayPal Comment: POSITIVE TEST RESULT. A positive Cologuard result should be followed with a colonoscopy or visual examination of the colon. The normal value (reference range) for this assay is negative. TEST DESCRIPTION: Composite algorithmic analysis of stool DNA-biomarkers with hemoglobin immunoassay. Quantitative values of individual biomarkers are not reportable and are not associated with individual biomarker result reference ranges. Cologuard is intended for colorectal cancer screening of adults of either sex, 45 years or older, who are at average-risk for colorectal cancer (CRC). Cologuard has been approved for use by the U.S. FDA. The performance of Cologuard was established in a cross sectional study of average-risk adults aged 50-84. Cologuard performance in patients ages 45 to 49 years was estimated by sub-group analysis of near-age groups. Colonoscopies performed for a positive result may find as the most clinically significant lesion: colorectal cancer [4.0%], advanced adenoma (including sessile serrated polyps greater than or equal to 1cm diameter) [20%] or non- advanced adenoma [31%]; or no colorectal neoplasia [45%]. These estimates are derived from a prospective cross-sectional screening study of 10,000 individuals at average risk for colorectal cancer who were screened with both Cologuard and colonoscopy. (Lynette Lazar et al, N Engl J Med 2014;370(14):7553-0722.) Cologuard may produce a false negative or false positive result (no colorectal cancer or precancerous polyp present at colonoscopy follow up). A negative Cologuard test result does not guarantee the absence of CRC or advanced adenoma (pre-cancer). The current Cologuard screening interval is every 3 years. ([place] [employer] and U.S. Multi-Society Task Force). Cologuard performance data in a 10,000 patient pivotal study using colonoscopy as the reference method can be accessed at the following location: www.[employer]udge/results. Additional description of the Cologuard test process, warnings and precautions can be found at www.cologuard.com. Stool 02/03/2022 7:44 PM CDT 02/05/2022 3:44 PM CDT us Dk Zhu APRN, INSPECTING ENGINEER BODY FLUIDS & ST OOLS ORDERABLES Final Result PayPal, [facility] [address] [place] [address], PayPal [address] [address] * HEPATITIS C ANTIBODY (08/04/2017 7:39 AM MEDICATION RECONCILIATION TECHNICIAN) hepatitis C antibody 0.20 <1 S/CO 08/04/2017 10:24 PM MEDICATION RECONCILIATION TECHNICIAN [facility] Comment: Signal/Cutoff ratio < 0.79 is Nondetected Signal/Cutoff ratio 0.80-0.99 is Grayzone Signal/Cutoff ratio > 0.99 is Detected Supplemental assays are recommended if signal/cutoff ratio is >/=1.00. Signal/cutoff ratio result >/= 5.00 is 97% predictive of positivity for recombinant immunoblot assay (RIBA) and will be reported to the [place] Department of Public Health as required. Blood specimen (specimen) Venipuncture / Unknown 08/04/2017 7:39 AM MEDICATION RECONCILIATION TECHNICIAN 08/04/2017 7:39 AM MEDICATION RECONCILIATION TECHNICIAN Case Combs MD CHEMISTRY ORDERABLES Rufina l Result Performing Organization Address City/[facility]/ZIP Co de Phone Number [facility] [address] [place] [address], * STOOL, OCCULT BLOOD IMMUNOASSAY (IFOB) (07/26/2017 10:33 AM MEDICATION RECONCILIATION TECHNICIAN) OCCULT BLOOD - IFOB Negative Negative 07/27/2017 12:23 AM MEDICATION RECONCILIATION TECHNICIAN [facility] Specimen of unknown material (specimen) STOOL SPECIMEN / Unknown Non-Phlebotomy Collection / Unknown 07/26/2017 10:33 AM MEDICATION RECONCILIATION TECHNICIAN 07/26/2017 10:33 AM MEDICATION RECONCILIATION TECHNICIAN Julien Chino DO BODY FLUIDS & STOOLS ORDERABLES Final Result Performing Organization Address City/[facility] Co de Phone Number [facility] [address] [place] [address], from Last 3 Months or Most Recently Relevant to Health Maintenance Insurance MEDICARE C [employer] Care Teams Chair Pad Maker Relationship Specialty Start Date End Date Case Combs MD #[address] [facility] [address] [place] [address] PCP - General Family Medicine 07/26/17 Matt Maradiaga MD #[address] [facility] [address] [place] [address] Consulting Physician Colon and Rectal Surgery 03/10/22 Gen Figueroa MD [address] [place] [address] Consulting Physician Pulmonary Disease 04/12/22
--- OUTSIDE RECORDS SUMMARY | 2025-05-23 12:35 | XMS_ITS | Clinical Summary ---
Author Organization [facility] Address [address] [place] [address] Care Team Providers Care Paint Supervisor Name Role Phone Julien Chino MD Primary Care Provider [phone] Source Comments [facility],non-owned Affiliates and Associated Physician Practices is amultiple site organization consisting of ambulatory clinics and hospital sitesin [place], [place], [place] and [place]. This disclosure is being madepursuant to the Care Everywhere program and may not contain all information available regarding this patient. Last updated 18.[facility] Social History Tobacco Use Types Packs/Day Years Used Date Smoking Tobacco: Never Assessed Comments Unknown Sex and Gender Information Value Date Recorded Sex Assigned at Not on file Legal Sex Female 10:47 AM CDT Gender Identity Not on file Sexual Orientation Not on file Plan of Treatment Health Maintenance Due Date Last Done Comments BONE DENSITY TESTING 1950 HEPATITIS C SCREENING 09/26/1966 DTAP/TDAP/TD VACCINES (1 - Tdap) 10/01/1967 PNEUMOCOCCAL VACCINE 50+ (1 of 1 - PCV) 1998 ZOSTER VACCINE (1 of 2) 1998 Respiratory Syncytial Virus (RSV) Vaccine Pt: or over 60 yrs (1 - 1-dose 75+ series) 10/01/2023 DEPRESSION SCREENING 06/27/2024 COVID-19 VACCINE ( - 2024-2 6 season) 2025 INFLUENZA VACCINE (#1) 2025 HEPATITIS B VACCINE Aged Out No longe r eligible based on patient's age to complete this topic HIB VACCINE Aged Out No longer eligi ble based on patient's age to complete this topic HPV VACCINE Aged Out No longer eligi ble based on patient's age to complete this topic MENINGOCOCCAL (Group B) VACC INE SHARED DECISION-MAKING Aged Out No longer eligibl e based on patient's age to complete this topic MENINGOCOCCAL GROUPS A/C/Y/W VACCINE Aged Out No longer eligible b ased on patient's age to complete this topic Insurance [facility] MANAGED MEDICARE ADV Care Teams Paint Supervisor Relationship Specialty Start Date End Date Julien Chino MD [address] [place] [address] PCP - General 01/10/18
--- OUTSIDE RECORDS SUMMARY | 2025-05-23 12:35 | XMS_ITS | Encounter Summary ---
Author Organization [facility] Address [address] [place] [address] Phone Care Team Providers Care Logging Equipment Operator Name Role Phone Case Combs MD Primary Care Provider [phone] Matt Maradiaga MD Unavailable Gen Figueroa MD Unavailable Reason for Visit * Reason Comments Medication Refill Encounter Details Date Type Department Care Team (Late st Contact Info) Description 04/22/2025 Refill [facility] - [facility] Medicine - [place] [address] [place] [address] Case Combs MD #[address] [address] Medication Refill Social History Tobacco Use Types Packs/Day Years Used Date Smoking Tobacco: Every Day Cigarettes 0.5 53.4 Started: [birth year]/20/1971 Smokeless Tobacco: Never Comments:Less than half a pa ck Alcohol Use Standard Drinks/Week Comments No 0 (1 standard drink = 0.6 oz pur e alcohol) [facility] Utilities Answer Date Recorded In the past 12 months has th e electric, gas, oil, or water [employer] threatened to shut off services in your home? No 10/01/2024 Social Connection and Isolation Panel Answer Date Recorded In a typical week, how many times do you talk on the phone with family, friends, or neighbors? More than three times a week 10/01/2024 How often do you get togethe r with friends or relatives? Once a week 10/01/2024 How often do you attend chur or zoroastrianism services? Never 10/01/2024 Do you belong to any clubs o r organizations such as restorationism groups, unions, fraternal or athletic groups, or [...] Total Score - Questions 1-9 0 01/25 [facility] - Occupational Stress [...] place to sleep or slept in a senior living (including now)? No 10/31/2023 Housing Stability Vital Sign Answer Davis e Recorded In the last 12 months, was t here a time when you were not able to pay the mortgage or rent on time? No 10/01/2024 In the past 12 months, how m any times have you moved where you were living? 0 10/01/2024 At any time in the past 12 m onths, were you homeless or living in a senior living (including now)? No 10/01/2024 Education Answer Date [...] on file Sexual Orientation Not on file documented as of this encounter Miscellaneous Notes * Telephone Encounter - Cris Blake RN - 04/23/2025 11:34 AM CDT Refill(s) on file according to last Rx documented in this encounter Plan of Treatment Upcoming Encounters Date Type Department Care Team (Late st Contact Info) Description 05/24/2025 3:00 PM PITCH GATHERER [facility]ment [facility] [address] [place] [address] Gen Figueroa MD [address] [place] [address] Discharge Disposition: Discharged to home or Selfcare 05/29/2025 1:00 PM PITCH GATHERER Office Visit [facility] Family Medicine [facility] [address] [place] [address] Case Combs MD #[address] [address] 06/03/2025 10:15 AM PITCH GATHERER Office [facility] [address] [place] [address] Gen Figueroa MD [address] [place] [address] documented as of this encounter Visit Diagnoses Not on filedocumented in this encounter Additional Health Concerns Assessment Noted Time PHQ-9 Depression Total Score: 0 02/06/20 25 11:00 AM CDT documented as of this encounter Care Teams Logging Equipment Operator Relationship Specialty Start Date End Date Case Combs MD #2 [facility] [address] [place] [address] PCP - General Family Medicine 07/26/17 Matt Maradiaga MD #[address] [address] Consulting Physician Colon and Rectal Surgery 03/10/22 Gen Figueroa MD #[address] [place] [address] Consulting Physician Pulmonary Disease 04/12/22 documented as of this encounter
--- OUTSIDE RECORDS SUMMARY | 2025-05-23 12:35 | XMS_ITS | Encounter Summary ---
Author Organization [facility] Address [address] [place] [address] Care Team Providers Care Press Service Reader Name Role Phone Julien Chino MD Primary Care Provider [phone] Encounter Details Date Type Department Care Team (Late st Contact Info) Description 08/19/2021 Lab Requisition [facility] DermPath Lab [address] [place] [address] Giovanni Patel Jr., MD [address] [place] [address] Social History Tobacco Use Types Packs/Day Years Used Date Smoking Tobacco: Never Assessed Comments Unknown Sex and Gender Information Value Date Recorded Sex Assigned at Not on file Legal Sex Female 10:47 AM CDT Gender Identity Not on file Sexual Orientation Not on file documented as of this encounter Plan of Treatment Not on file documented as of this encounter Procedures Procedure Name Priority Date/Time Associated Diagnosis Comments DERMATOPATHOLOGY Routine 08/18/2021 12:0 0 AM SYSTEM OPERATION SUPERINTENDENT documented in this encounter Results * DERMATOPATHOLOGY (08/18/2021 12:00 AM SYSTEM OPERATION SUPERINTENDENT) Case Report Dermatopathology Report Case: [id number] Authorizing Provider: Giovanni Patel Jr., MD Collected: 08/18/2021 12:00 AM Ordering Location: [facility] DermPath Lab Received: 08/19/2021 02:11 PM Pathologist: Fela Crenshaw MD Specimen: Skin, right central pentecostal 3:32 PM SYSTEM OPERATION SUPERINTENDENT DERMATOPATHOLOGY LABORATORY Final Diagnosis Specimen A. SKIN, right central pentecostal: BENIGN VERRUCOUS KERATOSIS (L82.1) OVERLYING CUTANEOUS HORN (L85.8) 2 3:32 PM [facility] DERMATOPATHOLOGY LABORATORY at 1532 SYSTEM OPERATION SUPERINTENDENT Clinical History Inflamed seborrheic keratosis vs squamous cell carcinoma vs actinic keratosis. . 2 3:32 PM [facility] DERMATOPATHOLOGY LABORATORY Gross Description Specimen A: Received is one formalin filled container labeled with the patient's name and designated right central pentecostal. The specimen consists of a shave biopsy measuring [id number]. Jar 0. 2 3:32 PM [facility] DERMATOPATHOLOGY LABORATORY Microscopic Description Specimen A. SKIN, right central pentecostal: Sections show hyperkeratosis, papillomatosis, hypergranulosis, and acanthosis. These histological findings can be seen in a verruca vulgaris or a seborrheic keratosis. There is a column of marked compact hyperkeratosis. 2 3:32 PM [facility] DERMATOPATHOLOGY LABORATORY Disclaimer An external and internal positive and negative controls are appropriate for the histochemical, immunohistochemical and immunofluorescence stain(s) in this case (if any), except where stated explicitly. The performance characteristics of the stain(s) cited in this report were developed and its performance characteristic determined by the Dermatopathology Laboratory at [facility], directed by Dr. Genoveva Crenshaw. These tests need not be, and therefore are not, approved by the [place] Food and Drug Administration. The tests are used for clinical purposes. Billing Codes Specimen Charges Stain Charges 18686 1 2 3:32 PM [facility] DERMATOPATHOLOGY LABORATORY Embedded Images 2 3:32 PM [facility] DERMATOPATHOLOGY LABORATORY Pathology/Cytolog y TISSUE SPECIMEN FROM SKIN / Unknown 08/18/2021 08/19/2021 2:11 PM [facility] Giovanni Patel Jr., MD LAB - PATHOLOGY/CYTOLOG Y ORDERABLES Final Result DERMATOPATHOLOGY LABORATORY [facility] - Department of Dermatology [address] [phone] documented in this encounter Visit Diagnoses Not on filedocumented in this encounter Care Teams Press Service Reader Relationship Specialty Start Date End Date Julien Chino MD [address] [place] [address] PCP - General 01/10/18 documented as of this encounter
--- OUTSIDE RECORDS SUMMARY | 2025-05-23 12:35 | XMS_ITS | Encounter Summary ---
Author Organization [facility] Address [address] [place] [address] Phone Care Team Providers Care Community Services Coordinator Name Role Phone Case Combs MD Primary Care Provider [phone] [phone] Matt Maradiaga MD Unavailable Gen Figueroa MD Unavailable Reason for Visit * Reason Comments Medication Refill Encounter Details Date Type Department Care Team (Late st Contact Info) Description 08/29/2023 [facility]ill [facility] - [place] #2 [place] [phone] Case Combs MD #[address] [address] Medication Refill Social History Tobacco Use Types Packs/Day Years Used Date Smoking Tobacco: Every Day Cigarettes 0.5 53.4 Started: 12/20/1971 Smokeless Tobacco: Never Comments:Less than half a pa ck Alcohol Use Standard Drinks/Week Comments No 0 (1 standard drink = 0.6 oz pur e alcohol) [facility] Utilities Answer Date Recorded In the past 12 months has th e electric, gas, oil, or water [employer] threatened to shut off services in your home? No 07/25/2023 Social Connection and Isolation Panel Answer Date Recorded In a typical week, how many times do you talk on the phone with family, friends, or neighbors? Patient declined 07/25/2023 How often do you get togethe r with friends or relatives? Patient declined 07/25/2023 How often do you attend yarsanism or religion serv ices? Patient declined 07/25/2023 Do you belong to any clubs o r organizations such as yarsanism groups, unions, fraternal or athletic groups, or school groups? Patient declined 07/25/2023 How often do you attend meet ings of the clubs or organizations you belong to? Patient declined 07/25/2023 Are you , , di vorced, , never , or living with a partner? 07/25/2023 AUDIT-C Answer Date Recorded Q1: How often do you have a drink containing alcohol? Never 07/25/2023 Q2: How many drinks containi ng alcohol do you have on a typical day when you are drinking? Patient does not drink Q3: How often do you have si x or more drinks on one occasion? Never 07/25/2023 Overall Financial Resource Strain (CARDIA) Answe r Date Recorded How hard is it for you to pa y for the very basics like food, housing, medical care, and heating? Not hard at all 07/25/2023 PHQ-2 Answer Date Recorded Total Score - Questions 1-9 0 10/2 11/2022 [facility] Occupat ional Health - Occupational Stress Questionnaire Answer Date Recorded Do you feel stress - tense, restless, nervous, or anxious, or unable to sleep at night because your mind is troubled all the time - these days? Not at all 07/25/2023 Exercise Vital Sign Answer Date Recorde d On average, how many days pe r week do you engage in moderate to strenuous exercise (like a brisk walk)? 4 days 07/25/2023 On average, how many minutes do you engage in exercise at this level? 30 min 07/25/2023 Hunger Vital Sign Answer Date Recorded Within the past 12 months, y ou worried that your food would run out before you got the money to buy more. Never true 07/25/19 24 Within the past 12 months, t he food you bought just didn't last and you didn't have money to get more. Never true 07/25/2023 PRAPARE - Transportation Answer Date Re corded In the past 12 months, has l ack of transportation kept you from medical appointments or from getting medications? No 06/28 In the past 12 months, has l ack of transportation kept you from meetings, work, or from getting things needed for daily living? No 07/25/2023 Housing Stability Vital Sign Answer Davis e Recorded In the last 12 months, was t here a time when you were not able to pay the mortgage or rent on time? Patient declined 07/25/19 24 Number of Places Lived in the Last Year Not on f ile 07/25/2023 In the last 12 months, was t here a time when you did not have a steady place to sleep or slept in a alf (including now)? Patient declined 07/25/2023 Education Answer Date Recorded What is the highest level of school you have completed or the highest degree you have received? GED or equivalent 07/2022 Sexually Active Control Partners Comments Not Currently Male Comments No Sex and Gender Information Value Date Recorded Sex Assigned at Not on file Legal Sex Female 8:55 PM CDT Gender Identity Not on file Sexual Orientation Not on file documented as of this encounter Functional Status documented as of this encounter Mental Status * Question Answer Entry Date Author BP 134/70 09/01/2023 10:41 AM Elaine Monteiro Temp 96.7 09/01/2023 10:41 AM Elaine Monteiro Pulse 65 09/01/2023 10:41 AM Elaine Monteiro SpO2 96 09/01/2023 10:41 AM Elaine Monteiro documented in this encounter Miscellaneous Notes * Telephone Encounter - Cris Blake RN - 08/30/2023 10:32 AM CST Medication(s) refilled and signed per [facility] Chronic Medication Refill Standing Order for Pediatricand Adult Patients. Requested Prescriptions Pending Prescriptions Disp Refills alendronate (FOSAMAX) 70 MG Tablet [Pharmacy Med Name: ALENDRONATE 70MG TABLETS] 12 Tablet 1 Sig: TAKE 1 TABLET BY MOUTH EVERY 7 DAYS Bone Density Regulators Protocol Passed - 08/29/2023 12:51 PM Passed - Visit with relevant provider in past 12 months or upcoming 90 days Recent Visits Date Type Provider Dept 07/26/23 Office Visit Case Combs MD [facility] 04/21/23 Office Visit Case Combs MD [facility] 02/10/23 Telemedicine Case Combs MD [facility] 01/13/23 Office Visit Case Combs MD [facility] 10/05/22 Office Visit Case Combs MD [facility] Showing recent visits within past 365 days and meeting all other requirements Future Appointments Date Type Provider Dept 11/02/23 Appointment Case Combs MD [facility] Showing future appointments within next 90 days and meeting all other requirements Passed - Serum creatinine on record in past 12 months CREATININE, BLOOD Date Value Ref Range Status 02/14/2023 0.97 0.60 - 1.00 mg/dL Final Passed - Serum calcium on record in past 12 months CALCIUM Date Value Ref Range Status 02/14/2023 9.4 8.7 - 10.5 mg/dL Final F COUNSELOR documented in this encounter Plan of Treatment Upcoming Encounters Date Type Department Care Team (Late st Contact Info) Description 05/24/2025 3:00 PM STAFF COUNSELOR [facility] [address] [place] [phone] Gen Figueroa MD [address]2 [place] [phone] Discharge Disposition: Discharged to home or Selfcare 05/29/2025 1:00 PM STAFF COUNSELOR [facility] - [place] #2 [place] [address] Case Combs MD #[address] [address] 06/03/2025 10:15 AM STAFF COUNSELOR [facility] #2 [place] [address] Gen Figueroa MD #2 [place] [address] documented as of this encounter Visit Diagnoses Diagnosis Osteopenia, unspecified location documented in this encounter Additional Health Concerns Assessment Noted Time PHQ-9 Depression Total Score: 0 04/21/20 23 9:47 AM CDT documented as of this encounter Care Teams Community Services Coordinator Relationship Specialty Start Date End Date Case Combs MD #[address] [address] PCP - General Family Medicine 07/26/17 Matt Maradiaga MD #[address] [address] Consulting Physician Colon and Rectal Surgery 03/10/22 Gen Figueroa MD #2 [place] [address] Consulting Physician Pulmonary Disease 04/12/22 documented as of this encounter
--- OUTSIDE RECORDS SUMMARY | 2025-05-23 12:35 | XMS_ITS | Encounter Summary ---
Author Organization [facility] Address [address] [place] [address] Phone Care Team Providers Care Customer Strategy Manager Name Role Phone Case Combs MD Primary Care Provider [phone] [phone] Matt Maradiaga MD Unavailable Gen Figueroa MD Unavailable Reason for Visit * Reason Comments Medication Refill Encounter Details Date Type Department Care Team (Late st Contact Info) Description 08/23/2023 [facility]ill [facility] - [place] [address]2 [place] [phone] Case Combs MD #[address] [address] Medication Refill Social History Tobacco Use Types Packs/Day Years Used Date Smoking Tobacco: Every Day Cigarettes 0.5 53.4 Started: 12/20/1971 Smokeless Tobacco: Never Comments:Less than half a pa ck Alcohol Use Standard Drinks/Week Comments No 0 (1 standard drink = 0.6 oz pur e alcohol) [facility] Utilities Answer Date Recorded In the past 12 months has th e electric, gas, oil, or water [employer] threatened to shut off services in your home? No 07/25/2023 Social Connection and Isolation Panel Answer Date Recorded In a typical week, how many times do you talk on the phone with family, friends, or neighbors? Patient declined 07/25/2023 How often do you get togethe r with friends or relatives? Patient declined 07/25/2023 How often do you attend latter day or mandaen serv ices? Patient declined 07/25/2023 Do you belong to any clubs o r organizations such as latter day groups, unions, fraternal or athletic groups, or [...] Score - Questions 1-9 0 10/2 11/2022 [facility] of Occupat ional Health - Occupational [...] place to sleep or slept in a residential (including now)? Patient declined 07/25/2023 Education Answer [...] Telephone Encounter - Cris Blake RN - 08/23/2023 1:49 PM CST Medication(s) refilled and signed per [facility] Chronic Medication Refill Standing Order for Pediatricand Adult Patients. Requested Prescriptions Pending Prescriptions Disp Refills alendronate (FOSAMAX) 70 MG Tablet [Pharmacy Med Name: ALENDRONATE 70MG TABLETS] 12 Tablet 3 Sig: Take 1 Tablet by mouth every 7 days. Bone Density Regulators Protocol Passed - 08/23/2023 3:53 AM Passed - Visit with relevant provider in past 12 months or upcoming 90 days Recent Visits Date Type Provider Dept 07/26/23 Office Visit Case Combs MD [facility] 04/21/23 Office Visit MohCase shelby MD [facility] 02/10/23 Telemedicine Case Combs [...] 02/14/2023 9.4 8.7 - 10.5 mg/dL Final LENE PLANT OPERATOR documented in this encounter Plan of Treatment Upcoming Encounters Date Type Department Care Team (Late st Contact Info) Description 05/24/2025 3:00 PM ETHYLENE PLANT OPERATOR Appointment [facility] Respiratory Therapy [address] [place] [address] Gen Figueroa MD [address] [place] [address] Discharge Disposition: Discharged to home or Selfcare 05/29/2025 1:00 PM ETHYLENE PLANT OPERATOR Office Visit [facility] Medical [facility] - Family Medicine - [place] [address] [place] [address] Case Combs MD #[address] [address] 06/03/2025 10:15 AM ETHYLENE PLANT OPERATOR [facility] - [place] [address] [place] [address] Gen Figueroa MD [address] [place] [address] documented as of this encounter Visit Diagnoses Diagnosis Osteopenia, unspecified location documented in this encounter Additional Health Concerns Assessment Noted Time PHQ-9 Depression Total Score: 0 04/21/20 23 9:47 AM CDT documented as of this encounter Care Teams Customer Strategy Manager Relationship Specialty Start Date End Date Case Combs MD #[address] [address] PCP - General Family Medicine 07/26/17 Matt Maradiaga MD #[address] [address] Consulting Physician Colon and Rectal Surgery 03/10/22 Gen Figueroa MD #2 [place] [address] Consulting Physician Pulmonary Disease 04/12/22 documented as of this encounter
--- OUTSIDE RECORDS SUMMARY | 2025-05-23 12:35 | XMS_ITS | Encounter Summary ---
Author Organization [facility] Address [address] [place] [address] Phone Care Team Providers Care Oral And Maxillofacial Surgery Resident Name Role Phone Case Combs MD Primary Care Provider [phone] [phone] Matt Maradiaga MD Unavailable Gen Figueroa MD Unavailable Reason for Visit * Reason Comments Medication Refill Encounter Details Date Type Department Care Team (Late st Contact Info) Description 10/20/2023 Refill [facility] - [place] [address]2 [place] [phone] Case Combs MD #[address] [address] Medication Refill Social History Tobacco Use Types Packs/Day Years Used Date Smoking Tobacco: Every Day Cigarettes 0.5 53.4 Started: 12/20/1971 Smokeless Tobacco: Never Comments:Less than half a pa ck Alcohol Use Standard Drinks/Week Comments No 0 (1 standard drink = 0.6 oz pur e alcohol) [facility] Utilities Answer Date Recorded In the past 12 months has th e electric, gas, oil, or water [employer] threatened to shut off services in your home? No 07/25/2023 Social Connection and Isolation Panel Answer Date Recorded In a typical week, how many times do you talk on the phone with family, friends, or neighbors? Patient declined 07/25/2023 How often do you get togethe r with friends or relatives? Patient declined 07/25/2023 How often do you attend yazidism or pentecostalism serv ices? Patient declined 07/25/2023 Do you belong to any clubs o r organizations such as yazidism groups, unions, fraternal or athletic groups, or [...] or rent on time? Patient declined 07/25/19 Number of Places Lived in the Last Year Not on f ile 07/25/2023 In the last 12 months, was t here a time when you did not have a steady place to sleep or slept in a long-term (including now)? Patient declined 07/25/2023 Education Answer [...] Telephone Encounter - Cris Blake RN - 10/21/2023 8:44 AM CDT Medication(s) refilled and signed per [facility] Chronic Medication Refill Standing Order for Pediatricand Adult Patients. Requested Prescriptions Pending Prescriptions Disp Refills esomeprazole (NexIUM) 20 MG CAPSULE DELAYED RELEASE [Pharmacy Med Name: ESOMEPRAZOLE MAGNESIUM 20MGDR CAPS] 90 Capsule 1 Sig: TAKE 1 CAPSULE BY MOUTH DAILY Proton Pump Inhibitors Protocol Passed - 10/20/2023 8:36 PM Passed - Visit with relevant provider in past 12 months or upcoming 90 days Recent Visits Date Type Provider Dept 07/26/23 Office Visit Case Combs MD [facility] 04/21/23 Office Visit Case Combs MD [facility] 02/10/23 Telemedicine Case Combs MD [facility] 01/13/23 Office Visit Case Combs MD [facility] Showing recent visits within past 365 days and meeting all other requirements Future Appointments Date Type Provider Dept 11/02/23 Appointment Case Combs MD [facility] Showing future appointments within next 90 days and meeting all other requirements documented in this encounter Plan of Treatment Upcoming Encounters Date Type Department Care Team (Late st Contact Info) Description 05/24/2025 3:00 PM SCHOOL PROGRAM DIRECTOR [facility]ment [facility] 1 [place] [address] Gen Figueroa MD #2 [place] [address] Discharge Disposition: Discharged to home or Selfcare 05/29/2025 1:00 PM SCHOOL PROGRAM DIRECTOR Office Visit [facility] Medical [facility] - Family Medicine - [place] #2 [place] [address] Case Combs MD #[address] [address] 06/03/2025 10:15 AM SCHOOL PROGRAM DIRECTOR Office Visit [facility] - Pulmonology & Sleep Medicine - [place] #[address] [place] [address] Gen Figueroa MD #[address] [place] [address] documented as of this encounter Visit Diagnoses Not on filedocumented in this encounter Additional Health Concerns Assessment Noted Time PHQ-9 Depression Total Score: 0 04/21/20 9:47 AM CDT documented as of this encounter Care Teams Oral And Maxillofacial Surgery Resident Relationship Specialty Start Date End Date Case Combs MD #2 [facility] [address] [place] [address] PCP - General Family Medicine 07/26/17 Matt Maradiaga MD #2 [facility] [address] [place] [address] Consulting Physician Colon and Rectal Surgery 03/10/22 Gen Figueroa MD #2 [place] [phone] Consulting Physician Pulmonary Disease 04/12/22 documented as of this encounter
--- OUTSIDE RECORDS SUMMARY | 2025-05-23 12:35 | XMS_ITS | Encounter Summary ---
Author Organization [facility] Address [address] [place] [address] Phone Care Team Providers Care Flight Deck Officer Name Role Phone Case Combs MD Primary Care Provider [phone] [phone] Matt Maradiaga MD Unavailable Gen Figueroa MD Unavailable Reason for Visit * Reason Onset Date Comments Medication Refill 05/21/2025 Encounter Details Date Type Department Care Team (Late st Contact Info) Description 05/21/2025 MyChart RX Renewal [facility] #2 [place] [address] Case Combs MD #[address] [address] Medication Renewal Reviewed Social History Tobacco Use Types Packs/Day Years Used Date Smoking Tobacco: Every Day Cigarettes 0.5 53.4 Started: [birth year]/20/1971 Smokeless Tobacco: Never Comments:Less than half a pa ck Alcohol Use Standard Drinks/Week Comments No 0 (1 standard drink = 0.6 oz pur e alcohol) [facility] Utilities Answer Date Recorded In the past 12 months has th e electric, gas, oil, or water company threatened to shut off services in your [...] 10/01/2024 How often do you attend chur ch or methodist services? Never 10/01/2024 Do you belong to any clubs o r organizations such as evangelical groups, unions, fraternal or athletic groups, or [...] Total Score - Questions 1-9 0 01/25 [facility] of Occupat ional Health - Occupational [...] or slept in a residential (including now)? No 10/31/2023 Housing Stability Vital Sign Answer Davis e Recorded In the last 12 months, was t here a time when you were not able to pay the mortgage or rent on time? No 10/01/2024 In the past 12 months, how m any times have you moved where you were living? 0 10/01/2024 At any time in the past 12 m [facility], were you homeless or living in a residential (including now)? No 10/01/2024 Education Answer Date [...] encounter Miscellaneous Notes * Telephone Encounter - Victorina Mcgregor, RN - 05/22/2025 2:13 PM REHABILITATION ATTENDANT PDMP 04/23/25 30 day supply Medication failed the protocol, provider to review and approve the medication order if appropriate. Requested Prescriptions Pending Prescriptions Disp Refills HYDROcodone-acetaminophen (NORCO) 10-325 MG Tablet 90 Tablet 0 Sig: Take 1 Tablet by mouth every 8 hours as needed for Moderate or more severe pain. DX G89.4 Not Delegated - Opioid Combinations Protocol Failed - 05/22/2025 2:13 PM Failed - This refill cannot be delegated Passed - Visit with relevant provider in past 12 months or upcoming 90 days Recent Visits Date Type Provider Dept 02/05/25 Office Visit Case Combs MD [facility] 10/04/24 Office Visit Case Combs MD [facility] 05/29/24 Office Visit Case Combs MD [facility] Showing recent visits within past 365 days and meeting all other requirements Future Appointments Date Type Provider Dept 05/29/25 Appointment Case Combs MD [facility] Showing future appointments within next 90 days and meeting all other requirements BILITATION ATTENDANT documented in this encounter Plan of Treatment Upcoming Encounters Date Type Department Care Team (Late st Contact Info) Description 05/24/2025 3:00 PM REHABILITATION ATTENDANT [facility] 1 [place] [address] Gen Figueroa MD #2 [place] [address] Discharge Disposition: Discharged to home or Selfcare 05/29/2025 1:00 PM REHABILITATION ATTENDANT Office Visit [facility] Medical [facility] Family Medicine - [place] #[address] [place] [address] Case Combs MD #[address] [address] 06/03/2025 10:15 AM REHABILITATION ATTENDANT [facility] - [place] #2 [place] [address] Gen Figueroa MD #[address] [place] [address] documented as of this encounter Visit Diagnoses Diagnosis Chronic pain syndrome documented in this encounter Additional Health Concerns Assessment Noted Time PHQ-9 Depression Total Score: 0 02/06/20 25 11:00 AM CDT documented as of this encounter Care Teams Flight Deck Officer Relationship Specialty Start Date End Date Case Combs MD #[address] [address] PCP - General Family Medicine 07/26/17 Matt Maradiaga MD [facility] [address] [address] Consulting Physician Colon and Rectal Surgery 03/10/22 Gen Figueroa MD #2 [place] [address] Consulting Physician Pulmonary Disease 04/12/22 documented as of this encounter
--- OUTSIDE RECORDS SUMMARY | 2025-05-23 12:35 | XMS_ITS | Encounter Summary ---
Author Organization [facility] Address [address] [place] [address] Phone Care Team Providers Care Wet Sander Name Role Phone Case Combs MD Primary Care Provider [phone] [phone] Matt Maradiaga MD Unavailable Gen Figueroa MD Unavailable Reason for Visit * Reason Comments Medication Refill Encounter Details Date Type Department Care Team (Late st Contact Info) Description 10/31/2024 Refill [facility] - [place] #2 [place] [phone] Case Combs MD #[address] [address] Medication Refill Social History Tobacco Use Types Packs/Day Years Used Date Smoking Tobacco: Every Day Cigarettes 0.5 53.4 Started: 12/20/1971 Smokeless Tobacco: Never Comments:Less than half a pa ck Alcohol Use Standard Drinks/Week Comments No 0 (1 standard drink = 0.6 oz pur e alcohol) [facility] Utilities Answer Date Recorded In the past 12 months has th e electric, gas, oil, or water [employer] threatened to shut off services in your [...] How often do you attend chur or jew services? Never 10/01/2024 Do you belong to [...] Recorded Total Score - Questions 1-9 0 09/25 [facility]at ional Health - Occupational Stress [...] place to sleep or slept in a prison (including now)? No 10/31/2023 Housing Stability Vital [...] were you homeless or living in a prison (including now)? No 10/01/2024 Education Answer Date [...] Telephone Encounter - Cris Blake RN - 10/31/2024 9:46 AM CDT Images from the original note were not included. Alendronate Sodium Dispensed Days Supply Quantity Provider Pharmacy ALENDRONATE 70MG TABLETS 10/25/2024 84 12 Each Case Combs MD [facility] #... ALENDRONATE 70MG TABLETS 07/30/2024 84 12 Each Case Combs MD [facility] #... documented in this encounter Plan of Treatment Upcoming Encounters Date Type Department Care Team (Late st Contact Info) Description 05/24/2025 3:00 PM RUG CLEANER [facility]ment [facility] 1 [place] [address] Gen Figueroa MD #2 [place] [address] Discharge Disposition: Discharged to home or Selfcare 05/29/2025 1:00 PM RUG CLEANER Office Visit [facility] - Family Medicine [facility] [place] #2 [place] [address] Case Combs MD #[address] [address] 06/03/2025 10:15 AM RUG CLEANER Office Visit [facility] - Pulmonology & Sleep Medicine [facility] [place] #[address] [place] [address] Gen Figueroa MD #[address] [place] [address] documented as of this encounter Visit Diagnoses Diagnosis Osteopenia, unspecified location documented in this encounter Additional Health Concerns Assessment Noted Time PHQ-9 Depression Total Score: 0 10/05/19 25 10:17 AM CDT documented as of this encounter Care Teams Wet Sander Relationship Specialty Start Date End Date Case Combs MD #[address] [address] PCP - General Family Medicine 07/26/17 Matt Maradiaga MD #[address] [phone] Consulting Physician Colon and Rectal Surgery 03/10/22 Gen Figueroa MD #2 [place] [address] Consulting Physician Pulmonary Disease 04/12/22 documented as of this encounter
--- OUTSIDE RECORDS SUMMARY | 2025-05-23 12:35 | XMS_ITS | Clinical Summary ---
Author Organization [facility] Medical Office [facility] A Address [address] [place] [address] Care Team Providers Care All Around Gear Machine Operator Name Role Phone Fabi Little MD Unavailable [phone] Case Combs MD Primary Care Provider [phone] Allergies Active Allergy Reactions Criticality Noted Date Comments Aspirin High Iodinated Contrast Media Penicillins High Medications HYDROcodone-acetaminoph en (NORCO) 10-325 mg per tablet Take 1 tablet by mouth every 8 (eight) hours as needed 07/17/19 20 Active omega-3 fatty acids-fish oil 300-1,000 mg capsule Take by mouth Active albuterol HFA (PROVENTIL HFA,VENTOLIN HFA,PROAIR HFA) 90 mcg/actuation inhalerIndications:Panl obular emphysema Inhale 2 puffs every 6 (six) hours as needed for wheezing or shortness of breath 3 Inhaler 1 08/29/19 21 Active clopidogreL (PLAVIX) 75 mg tabletIndications:Coron michelle artery disease of [place] artery of [place] heart with stable angina pectoris Take 1 tablet (75 mg total) by mouth daily 90 tablet 1 08/29/19 21 Active simvastatin (ZOCOR) 80 mg tabletIndications:Abnor waldo low high density lipoprotein (HDL) cholesterol with hypertriglyceridemia Take 1 tablet (80 mg total) by mouth nightly 90 tablet 1 08/29/19 21 Active metoprolol tartrate (LOPRESSOR) 50 mg immediate release tabletIndications:Essen tial hypertension,Coronary artery disease of [place] artery of [place] heart with stable angina pectoris TAKE 1 TABLET BY MOUTH TWICE A DAY 180 tablet 1 05/25/20 21 Active alendronate 70 mg tablet, effervescent Take by mouth Active Active Problems Problem Noted Date Diagnosed Date Coronary artery disease of n ative artery of [place] heart with stable angina pectoris 08/28/2020 Assessment & Plan (08/28/2020 10:00 AM RHEOSTAT ASSEMBLER): Stable. Cont. Current meds. Spinal stenosis of sacral region 08/07/2019 Assessment & Plan (08/28/2020 10:01 AM RHEOSTAT ASSEMBLER): Chronic pain. Referred to pain management for further management of her pain. Continue current medications. Assessment & Plan (11/06/2019 10:39 AM CDT): Controlled today. No pain to report. Panlobular emphysema 08/07/2019 Assessment & Plan (08/28/2020 10:00 AM RHEOSTAT ASSEMBLER): At baseline, no acute flares. Continue current management. Assessment & Plan (11/06/2019 10:40 AM CDT): Stable at this time. Encouraged to stop smoking. Assessment & Plan (08/07/2019 9:28 AM RHEOSTAT ASSEMBLER): Managed well at this time. Encouraged to stop smoking. Essential hypertension 08/07/2019 Assessment & Plan (08/28/2020 9:59 AM RHEOSTAT ASSEMBLER): At goal. Continue current management. Assessment & Plan (11/06/2019 10:39 AM CDT): Well controlled today. Continue current medication. Assessment & Plan (08/07/2019 9:28 AM RHEOSTAT ASSEMBLER): Current well controlled on current medication. Abnormally low high density lipoprotein (HDL) cholesterol with hypertriglyceridemia 08/07/2019 Assessment & Plan (08/28/2020 10:00 AM RHEOSTAT ASSEMBLER): LDL at goal of less than 70. Triglycerides are mildly elevated and HDL is too low. Continue current medications. Assessment & Plan (11/06/2019 10:40 AM CDT): Will continue statin. Assessment & Plan (08/07/2019 9:29 AM RHEOSTAT ASSEMBLER): Will await pending labs. Heart healthy eating reviewed. Cigarette nicotine dependence without complicati on 08/07/2019 Assessment & Plan (08/28/2020 10:00 AM RHEOSTAT ASSEMBLER): Advised patient to quit smoking. Patient is not ready to quit at this point. Agree to doing lung cancer screening with CT scan. Assessment & Plan (08/07/2019 9:29 AM RHEOSTAT ASSEMBLER): Smokes half pack per day. Encouraged to stop smoking. Resolved Problems Problem Noted Date Diagnosed Date Resolved Date Screening for malignant neoplasm of breast 11/06/2019 08/28/2020 Immunizations Immunization Administration Dates Next Due Influenza Virus Vaccine Trivalent Mdv 03/11/2020 Influenza, Quad, Adjuvantate d, Intramuscular 03/11/2020 Influenza, Quadrivalent, Spl it, Preservative Free, Intramuscular 04/06/2019,03/28/2018,03/04/2017 Influenza, Trivalent, High D ose, Split, Preservative Free, Intramuscular 04/25/2016,04/14/2016,04/25/2015 Influenza, Trivalent, IM (MDV) 03/27/2014 Influenza, Unspecified 03/27/2014 Moderna SARS-CoV-2 Monovalen t Vaccination (12+ YRS) 08/21/2020 Pneumococcal Conjugate PCV 13 04/25/2015 Pneumococcal Polysaccharide PPV23 05/26/2016,06/2001 Tetanus Toxoid, Unspecified 09/26/2007 Surgical History Surgery Date Site/Laterality Comments CELIAC ARTERY STENT Medical History Medical History Date Comments Hypertension Heart attack (HCC) 06/28/2018 Panlobular emphysema 03/05/2017 Family History Medical History Relation Name Comments Heart disease Father Heart disease Mother Lung cancer Sister Relation Name Status Comments Father Mother Sister Social History Tobacco Use Types Packs/Day Years Used Date Smoking Tobacco: Every Day Cigarettes 0.5 60.9 Started: 06/27/1964 Smokeless Tobacco: Never Comments:06/28 ppd Alcohol Use Standard Drinks/Week Comments Never 0 (1 standard drink = 0.6 oz pur e alcohol) AUDIT-C Answer Date Recorded Frequency of Alcohol Consumption Never 08/07/2019 Average Number of Drinks Not on file 020 Frequency of Binge Drinking Not on file 07/28 PHQ-2 Answer Date Recorded PHQ-2 Total Score (If total score is 3 or more points, staff should administer the PHQ-9) 0 08/28/2020 Personal Safety Answer Date Recorded Getting School Help Needed Not on file 06/08 Comments No Sex and Gender Information Value Date Recorded Sex Assigned at Not on file Legal Sex Female 12:47 AM RHEOSTAT ASSEMBLER Gender Identity Female 08/06/2019 8:31 PM RHEOSTAT ASSEMBLER Sexual Orientation Straight 08/06/2019 8: 32 PM RHEOSTAT ASSEMBLER Last Filed Vital Signs Vital Sign Reading Time Taken Comments Blood Pressure 123/78 06/03/2023 12:11 PM RHEOSTAT ASSEMBLER Pulse 63 06/03/2023 12:11 PM RHEOSTAT ASSEMBLER Temperature 36.4 C (97.5 F) 08/28/2020 8:57 AM RHEOSTAT ASSEMBLER Respiratory Rate 12 06/03/2023 12:1 1 PM RHEOSTAT ASSEMBLER Oxygen Saturation 97% 08/28/2020 8:57 AM RHEOSTAT ASSEMBLER Inhaled Oxygen Concentration - - Weight 70.2 kg (154 lb 12.8 oz) 023 12:11 PM RHEOSTAT ASSEMBLER Height 157.5 cm (5' 2) 06/03/2023 12:1 1 PM RHEOSTAT ASSEMBLER Body Mass Index 28.31 06/03/2023 12:11 PM RHEOSTAT ASSEMBLER Plan of Treatment Health Maintenance Due Date Last Done Comments Hepatitis C Screening 1950 DTaP/Tdap/Td Vaccine (1 - Tdap) 10/01/1959 Hepatitis B Screening 1966 Lung Cancer Screening 1998 Zoster Vaccine (1 of 2) 1998 Well Visit 65+ 2013 Depression Screening 08/28/2021 08/28/2020, 11/06/2019, 08/07/2019 Fall Risk Assessment 08/28/2021 08/28/2020, 11/06/2019, 08/07/2019 Osteoporosis Screening-Bone Density Scan 07/07/2024 07/07/2022 Covid-19 Vaccine (3 - 2025-2 6 season) 2025 09/18/2020, 08/21/2020 Influenza Vaccine (#1) 2025 0, 03/11/2020, 04/06/2019, Additional history exists Pneumococcal vaccine 65+ Completed 016, 04/25/2015, 06/27/2001 Breast Cancer Screening-Mammogram Discontinued 11/26/2022, 10/10/2021, 10/10/2021, Additional history exists Insurance MEDICARE [facility] MEDICARE [facility] Address[address] [address] Care Teams All Around Gear Machine Operator Relationship Specialty Start Date End Date Case Combs MD [address] [facility] [address] [place] [address] PCP - General Family Medicine 05/19/22 Fabi Little MD [address] [place] [address] Consulting Physician Cardiology 08/28/20
--- OUTSIDE RECORDS SUMMARY | 2025-05-23 12:35 | XMS_ITS | Encounter Summary ---
Author Organization [facility] Address [address] [place] [address] Phone Care Team Providers Care Taker Out Name Role Phone Case Combs MD Primary Care Provider [phone] Matt Maradiaga MD Unavailable Gen Figueroa MD Unavailable Reason for Visit * Reason Comments Medication Refill Encounter Details Date Type Department Care Team (Late st Contact Info) Description 08/23/2023 Refill [facility] - [facility] Medicine - [place] [address] [place] [phone] Case Combs MD [address] [address] Medication Refill Social History Tobacco Use Types Packs/Day Years Used Date Smoking Tobacco: Every Day Cigarettes 0.5 53.4 Started: [birth year]/20/1971 Smokeless Tobacco: Never Comments:Less than half a pa ck Alcohol Use Standard Drinks/Week Comments No 0 (1 standard drink = 0.6 oz pur e alcohol) [facility] Utilities Answer Date Recorded In the past 12 months has th e electric, gas, oil, or water [employer] threatened to shut off services in your home? No 07/25/2023 Social Connection and Isolation Panel Answer Date Recorded In a typical week, how many times do you talk on the phone with family, friends, or neighbors? Patient declined 07/25/2023 How often do you get togethe r with friends or relatives? Patient declined 07/25/2023 How often do you attend spiritism or shinto serv ices? Patient declined 07/25/2023 Do you belong to any clubs o r organizations such as spiritism groups, unions, fraternal or athletic groups, or [...] Score - Questions 1-9 0 10/2 11/2022 [facility] - Occupational [...] place to sleep or slept in a mcfp (including now)? Patient declined 07/25/2023 Education Answer [...] Encounter - Cris Blake RN - 08/23/2023 3:47 PM CST Name from pharmacy: ALENDRONATE 70MG TABLETS Will file in chart as: alendronate (FOSAMAX) 70 MG Tablet The original prescription was reordered on 08/23/2023 SAW OPERATOR documented in this encounter Plan of Treatment Upcoming Encounters Date Type Department Care Team (Late st Contact Info) Description 05/24/2025 3:00 PM RIP SAW OPERATOR Appointment [facility] Respiratory Therapy [address] [place] [address] Gen Figueroa MD [address] [place] [address] Discharge Disposition: Discharged to home or Selfcare 05/29/2025 1:00 PM RIP SAW OPERATOR Office Visit [facility] [address] [place] [address] Case Combs MD #[address] [address] 06/03/2025 10:15 AM RIP SAW OPERATOR Office Visit [facility] Pulmonology & Sleep Medicine [facility] #[address] [place] [address] Gen Figueroa MD [address] [place] [address] documented as of this encounter Visit Diagnoses Diagnosis Osteopenia, unspecified location documented in this encounter Additional Health Concerns Assessment Noted Time PHQ-9 Depression Total Score: 0 04/21/20 23 9:47 AM CDT documented as of this encounter Care Teams Taker Out Relationship Specialty Start Date End Date Case Combs MD #[address] [address] PCP - General Family Medicine 07/26/17 Matt Maradiaga MD #[address] [address] Consulting Physician Colon and Rectal Surgery 03/10/22 Gen Figueroa MD [address] [place] [address] Consulting Physician Pulmonary Disease 04/12/22 documented as of this encounter
--- OUTSIDE RECORDS SUMMARY | 2025-05-23 12:35 | XMS_ITS | Encounter Summary ---
Author Organization [facility] Address [address] [place] [address] Phone Care Team Providers Care Varying Exceptionalities Teacher Name Role Phone Case Combs MD Primary Care Provider [phone] Matt Maradiaga MD Unavailable Gen Figueroa MD Unavailable Reason for Visit * Reason Comments Medication Refill Encounter Details Date Type Department Care Team (Late st Contact Info) Description 12/14/2023 Refill [facility] - [facility] - [place] [address] [place] [phone] Case Combs MD #[address] [address] Medication Refill Social History Tobacco Use Types Packs/Day Years Used Date Smoking Tobacco: Every Day Cigarettes 0.5 53.4 Started: 12/20/1971 Smokeless Tobacco: Never Comments:Less than half a pa ck Alcohol Use Standard Drinks/Week Comments No 0 (1 standard drink = 0.6 oz pur e alcohol) [facility] Utilities Answer Date Recorded In the past 12 months has th e electric, gas, oil, or water [employer] threatened to shut off services in your home? No 10/31/2023 Social Connection and Isolation Panel Answer Date Recorded In a typical week, how many times do you talk on the phone with family, friends, or neighbors? Patient declined 10/31/2023 How often do you get togethe r with friends or relatives? Patient declined 10/31/2023 How often do you attend baptism or christianity serv ices? Patient declined 10/31/2023 Do you belong to any clubs o r organizations such as baptism groups, unions, fraternal or athletic groups, or school groups? No 10/31/2023 How often do you attend meet ings of the clubs or organizations you belong to? Patient declined 10/31/2023 Are you , , di vorced, , never , or living with a partner? 10/31/2023 AUDIT-C Answer Date Recorded Q1: How often do you have a drink containing alcohol? Never 10/31/2023 Q2: How many drinks containi ng alcohol do you have on a typical day when you are drinking? Patient does not drink Q3: How often do you have si x or more drinks on one occasion? Never 10/31/2023 Overall Financial Resource Strain (CARDIA) Answe r Date Recorded How hard is it for you to pa y for the very basics like food, housing, medical care, and heating? Not hard at all 10/31/2023 PHQ-2 Answer Date Recorded Total Score - Questions 1-9 0 10/2 11/2022 [facility] - Occupational Stress Questionnaire Answer Date Recorded Do you feel stress - tense, restless, nervous, or anxious, or unable to sleep at night because your mind is troubled all the time - these days? Only a little 10/31/2023 Exercise Vital Sign Answer Date Recorde d On average, how many days pe r week do you engage in moderate to strenuous exercise (like a brisk walk)? 7 days 10/31/2023 On average, how many minutes do you engage in exercise at this level? 30 min 10/31/2023 Hunger Vital Sign Answer Date Recorded Within the past 12 months, y ou worried that your food would run out before you got the money to buy more. Never true 10/31/19 24 Within the past 12 months, t he food you bought just didn't last and you didn't have money to get more. Never true 10/31/2023 PRAPARE - Transportation Answer Date Re corded In the past 12 months, has l ack of transportation kept you from medical appointments or from getting medications? No 11/2023 In the past 12 months, has l ack of transportation kept you from meetings, work, or from getting things needed for daily living? No 10/31/2023 Housing Stability Vital Sign Answer [...] place to sleep or slept in a halfway (including now)? No 10/31/2023 Education Answer Date Recorded What is the [...] encounter Miscellaneous Notes * Telephone Encounter - Crista Fierro RN - 12/14/2023 11:34 AM CDT Medication(s) refilled and signed per [facility] Chronic Medication Refill Standing Order for Pediatricand Adult Patients. Requested Prescriptions Pending Prescriptions Disp Refills simvastatin (ZOCOR) 40 MG Tablet [Pharmacy Med Name: SIMVASTATIN 40MG TABLETS] 90 Tablet 2 Sig: Take 1 Tablet by mouth every evening. Hmg CoA Reductase Inhibitors Protocol Passed - 12/14/2023 11:21 AM Passed - Visit with relevant provider in past 12 months or upcoming 90 days Recent Visits Date Type Provider Dept 11/01/23 Office Visit Case Combs MD [facility] 07/26/23 Office Visit MohyuddinCase MD [facility] 04/21/23 Office Visit Case Combs MD [facility] 02/10/23 Telemedicine Case Combs MD [facility] 01/13/23 Office Visit Case Combs MD [facility] Showing recent visits within past 365 days and meeting all other requirements Future Appointments Date Type Provider Dept 02/21/24 Appointment Case Combs MD [facility] Showing future appointments within next 90 days and meeting all other requirements Passed - Lipid panel in past 12 months LDL Date Value Ref Range Status 07/26/2023 Final Comment: Unable to calculate LDL when Triglycerides are greater than 400. Direct measurement of LDL is available upon request as a separate test. HDL CHOLESTEROL Date Value Ref Range Status 07/26/2023 41 >40 mg/dL Final CHOLESTEROL Date Value Ref Range Status 07/26/2023 182 <200 mg/dL Final TRIGLYCERIDES Date Value Ref Range Status 07/26/2023 428 (H) <150 mg/dL Final VLDL Date Value Ref Range Status 07/26/2023 Final Comment: Cannot be calculated due to Hypertriglyceridemia. CHOL/HDL RATIO Date Value Ref Range Status 07/26/2023 4.4 0.0 - 4.4 Final NON-HDL CHOLESTEROL Date Value Ref Range Status 07/26/2023 141 (H) <130 mg/dL Final Passed - CMP in past 12 months SODIUM Date Value Ref Range Status 02/14/2023 141 136 - 145 mmol/L Final POTASSIUM Date Value Ref Range Status 02/14/2023 4.2 3.5 - 5.1 mmol/L Final CHLORIDE Date Value Ref Range Status 02/14/2023 105 98 - 107 mmol/L Final CO2, VENOUS Date Value Ref Range Status 02/14/2023 25 22 - 30 mmol/L Final ANION GAP Date Value Ref Range Status 02/14/2023 15.2 <18.0 mmol/L Final GLUCOSE Date Value Ref Range Status 02/14/2023 99 70 - 99 mg/dL Final BUN Date Value Ref Range Status 02/14/2023 17 10 - 20 mg/dL Final CREATININE, BLOOD Date Value Ref Range Status 02/14/2023 0.97 0.60 - 1.00 mg/dL Final BUN/CREATININE RATIO Date Value Ref Range Status 02/14/2023 18 12 - 20 ratio Final TOTAL PROTEIN Date Value Ref Range Status 02/08/2023 8.1 6.3 - 8.2 g/dL Final ALBUMIN Date Value Ref Range Status 02/08/2023 4.5 3.5 - 5.0 g/dL Final A/G RATIO Date Value Ref Range Status 02/08/2023 1.3 1.0 - 2.2 Final CALCIUM Date Value Ref Range Status 02/14/2023 9.4 8.7 - 10.5 mg/dL Final T BILI Date Value Ref Range Status 02/08/2023 0.6 0.2 - 1.2 mg/dL Final SGOT (AST) Date Value Ref Range Status 02/08/2023 18 5 - 34 U/L Final SGPT (ALT) Date Value Ref Range Status 02/08/2023 16 0 - 55 U/L Final ALKALINE PHOSPHATASE Date Value Ref Range Status 02/08/2023 50 40 - 150 U/L Final GFR, EST. NONAFRICAN Date Value Ref Range Status 02/14/2023 56 (L) >=60 Final GFR, EST. Date Value Ref Range Status 02/14/2023 >60 >=60 Final GFR, ESTIMATED Date Value Ref Range Status 02/14/2023 >60 >=60 Final Comment: Creatinine Clearance is the preferred criteria for selecting drug dose adjustments in renally impaired patients. The GFR is provided as additional pertinent clinical information. GFR is reported in mL/min/1.73 sq m. Calculation based on the Chronic Kidney Disease Epidemiology Collaboration (CKD- EPI) equation refitwithout adjustment for race. IS THE PATIENT REQUIRED TO BE FASTING? Date Value Ref Range Status 11/02/2022 No Final documented in this encounter Plan of Treatment Upcoming Encounters Date Type Department Care Team (Late st Contact Info) Description 05/24/2025 3:00 PM PARANORMAL INVESTIGATOR Appointment [facility] Respiratory Therapy [address] [place] [phone] Gen Figueroa MD [address] [place] [phone] Discharge Disposition: Discharged to home or Selfcare 05/29/2025 1:00 PM PARANORMAL INVESTIGATOR Office Visit [facility] Medical [facility] [address] [facility] [place] [address] Case Combs MD #[address] [address] 06/03/2025 10:15 AM PARANORMAL INVESTIGATOR Office Visit [facility] Pulmonology & Sleep Medicine [facility] [address] [place] [phone] Gen Figueroa MD [address] [place] [address] documented as of this encounter Visit Diagnoses Not on filedocumented in this encounter Additional Health Concerns Assessment Noted Time PHQ-9 Depression Total Score: 0 04/21/20 9:47 AM CDT documented as of this encounter Care Teams Varying Exceptionalities Teacher Relationship Specialty Start Date End Date Case Combs MD #[address] [address] PCP - General Family Medicine 07/26/17 Matt Maradiaga MD #[address] [address] Consulting Physician Colon and Rectal Surgery 03/10/22 Gen Figueroa MD #[address] [place] [phone] Consulting Physician Pulmonary Disease 04/12/22 documented as of this encounter
--- OUTSIDE RECORDS SUMMARY | 2025-05-23 12:35 | XMS_ITS | Encounter Summary ---
Author Organization [facility] Address [address] [place] [address] Phone Care Team Providers Care Retail Aide Name Role Phone Case Combs MD Primary Care Provider [phone] Matt Maradiaga MD Unavailable Gen Figueroa MD Unavailable Reason for Visit * Reason Comments Medication Refill Encounter Details Date Type Department Care Team (Late st Contact Info) Description 06/12/2024 Refill [facility] - Family Medicine - [place] [address] [place] [address] Case Combs MD #[address] [address] Medication Refill Social History Tobacco Use Types Packs/Day Years Used Date Smoking Tobacco: Every Day Cigarettes 0.5 53.4 Started: [birth year]/20/1971 Smokeless Tobacco: Never Comments:Less than half a pa ck Alcohol Use Standard Drinks/Week Comments No 0 (1 standard drink = 0.6 oz pur e alcohol) [facility] Utilities Answer Date Recorded In the past 12 months has th e electric, gas, oil, or water [employer] threatened to shut off services in your home? No 10/31/2023 Social Connection and Isolation Panel Answer Date Recorded In a typical week, how many times do you talk on the phone with family, friends, or neighbors? Patient declined 10/31/2023 How often do you get togethe r with friends or relatives? Patient declined 10/31/2023 How often do you attend mosque or gnosticist serv ices? Patient declined 10/31/2023 Do you belong to any clubs o r organizations such as mosque groups, unions, fraternal or athletic groups, or [...] Recorded Total Score - Questions 1-9 0 12/0 08/2023 [facility] - Occupational [...] in a long-term (including now)? No 10/31/2023 Education Answer Date [...] Telephone Encounter - Cris Blake RN - 06/12/2024 1:15 PM CST Images from the original note were not included. Simvastatin Dispensed Days Supply Quantity Provider Pharmacy SIMVASTATIN 40 MG TABS 06/09/2024 90 90 Tablet Case Combs MD [facility] #... SIMVASTATIN 40MG TABLETS 03/09/2024 90 90 Each aCse Combs MD [facility] #... LLERY DESIGNER documented in this encounter Plan of Treatment Upcoming Encounters Date Type Department Care Team (Late st Contact Info) Description 05/24/2025 3:00 PM JEWELLERY DESIGNER [facility] Res[facility] [address] [place] [phone] Gen Figueroa MD [address] [place] [phone] Discharge Disposition: Discharged to home or Selfcare 05/29/2025 1:00 PM JEWELLERY DESIGNER [facility] [address] [place] [address] Case Combs MD #[address] [address] 06/03/2025 10:15 AM JEWELLERY DESIGNER [facility] [address] [place] [address] Gen Figueroa MD #[address] [place] [address] documented as of this encounter Visit Diagnoses Not on filedocumented in this encounter Additional Health Concerns Assessment Noted Time PHQ-9 Depression Total Score: 0 05/29/20 24 10:43 AM JEWELLERY DESIGNER documented as of this encounter Care Teams Retail Aide Relationship Specialty Start Date End Date Case Combs MD #[address] [address] PCP - General Family Medicine 07/26/17 Matt Maradiaga MD #[address] [address] Consulting Physician Colon and Rectal Surgery 03/10/22 Gen Figueroa MD #[address] [place] [phone] Consulting Physician Pulmonary Disease 04/12/22 documented as of this encounter
[2025-05-23 12:44] LABS: Influenza A QL RT-PCR Negative (Negative); Influenza B QL RT-PCR Negative (Negative); RSV RNA, RT-PCR Negative (Negative); SARS-CoV-2 RNA PCR Negative (Negative)
--- NOTE | 2025-05-23 12:45 | PC.NURSE ---
MD Dar made aware of pt's BP. No new orders at this time.
--- NOTE | 2025-05-23 13:00 | PC.NURSE ---
MD Dar made aware of pt's BP. No new orders at this time.
--- NOTE | 2025-05-23 13:36 | PC.NURSE ---
Wilbert Doe (Son):
--- NOTE | 2025-05-23 14:10 | PC.NURSE ---
Chaperoned rectal exam performed by MD Dar and chaperoned by WATSON Jett.
[2025-05-23 15:11] LABS: Add Urine Microscopic? YES; Appearance Urine Clear (Clear); Glucose Urine UA Negative (Negative); Leukocyte Esterase Ur 1+ LEU/UL (Negative); Nitrate Urine Positive (Negative); Specific Grav Ur 1.020 (1.010-1.020)
[2025-05-23 15:27] LABS: Cannabinoid Screen Urine Negative (Negative)
[2025-05-23] MEDS: cefTRIAXone 1 GM in SODIUM CHLORIDE 0.9% IV 50 ML 100 ML IVPB (15:27)
--- NOTE | 2025-05-26 12:17 | PC.NURSE ---
preliminary, urine culture. gram negative bacilli noted. awaiting final
--- NOTE | 2025-05-27 13:50 | PC.NURSE ---
PATIENT TRANSFERRED TO [facility], FAX NUMBER IS [phone], CULTURE REPORT FAXED TO HOSPITAL
== END 2025-05-23 16:10 | disposition short-term general hospital (02) ==
PROVIDERS: Emergency Provider Family Medicine; PCP Family Medicine
DX: R06.02 Shortness of breath (principal); R06.00 Dyspnea, unspecified; R53.83 Other fatigue; T50.8X5A Adverse effect of diagnostic agents, initial encounter; D64.9 Anemia, unspecified; N39.0 Urinary tract infection, site not specified; J43.9 Emphysema, unspecified; Z87.891 Personal history of nicotine dependence; Z79.899 Other long term (current) drug therapy; Z79.891 Long term (current) use of opiate analgesic; Z20.822 Contact with and (suspected) exposure to COVID-19
CPT/HCPCS: 36415; 71045; 80053; 80307; 81001; 82077; 82272; 83735; 83880; 84484; 85025; 85055; 85380; 87077; 87086; 87088; 87186; 87637; 93005; 96365; 99283; J0696